=== PATIENT | male | born 1950 | race Caucasian/White ===

== ENCOUNTER 2020-08-18 06:45 | Emergency (ER) | payer OTHER, SELFPAY ==
[2020-08-18 06:50] VITALS: BP 157/71; PULSE 72; RESP 18; TEMP 36.8; O2SAT 98; BMI 27.5
--- NOTE | 2020-08-18 07:06 | W.ED.DIZZY ---
HPI - Dizziness General: Chief Complaint: Dizziness Stated Complaint: Frequent Falling/Dizziness Time Seen by Provider: 08/18/20 06:53 Source: patient Mode of arrival: ambulatory Limitations: no limitations History of Present Illness: HPI Narrative: Mr. Mcguire is a nice 69-year-old male who comes in with complaints of dizziness for 1 year. He describes the dizziness as lightheaded. Patient states that he has had these episodes sometimes twice a week and the symptoms will last for anywhere from 5 minutes to longer. Patient states at times he will have troubles concentrating with this. His symptoms change though and the fact that he has had 3 episodes of the past 8 days including once this morning when he gets these symptoms and has now passed out. He denies any preceding complications, chest pain, headache, abdominal pain, back pain, flank pain or otherwise. Patient denies any injuries from falling with the syncopal episodes. Patient does not believe he has been unconscious for very long after they have happened. Patient is unaware of any eliciting factors. He is unaware of any exacerbating or alleviating factors. Patient denies having history of syncope or any heart problems. Associated symptoms: Reports syncope; Denies change in hearing, chest pain, chills, diaphoresis, ear discharge, headache(s), malaise, nausea, palpitations or vomiting Associated neuro symptoms: Deny confusion or numbness in extremities Review of Systems Const: Denies: fever(s), chills, body aches, fatigue, malaise or diaphoresis Eyes: Denies: change in vision, blurry vision, photophobia, eye discomfort, eye discharge, eye redness or yellow eyes ENMT: Denies: throat pain, odynophagia, hoarseness, swelling of lips/tongue, ear or mastoid pain, ear discharge, change in hearing or nasal discharge Card: Reports: lightheadedness and syncope; Denies: chest pain, palpitations, irregular heart rhythm, edema, pre-syncope, dyspnea on exertion or orthopnea Resp: Denies: dyspnea, productive cough, non-productive cough, wheezing, hemoptysis or chest congestion GI: Denies: abdominal pain, nausea, vomiting, hematemesis, coffee ground emesis, heartburn, diarrhea, constipation, GI cramping, hematochezia or melena : Denies: flank pain, dysuria, urinary frequency, urinary urgency or hematuria Musc: Denies: neck pain, back pain, extremity pain, extremity swelling, joint pain, joint swelling, joint redness, joint warmth or joint stiffness Skin/Breast: Denies: rash, pruritus, erythema, skin pain or skin tenderness Neuro: Reports: dizziness; Denies: headache(s), numbness in extremities, weakness in extremities, sensory changes, lack of coordination, difficulty walking, vertigo, confusion, Slurred speech present or seizure-like activity Maximo/Lymph: Denies: easy bruising, easy bleeding, petechiae, purpura or enlarged lymph nodes All/Imm: Denies: urticaria, throat swelling, tongue swelling, facial swelling or acute wheezing PFSH ED PFSH: Medical History DM type 2 (diabetes mellitus, type 2) Hyperlipidemia Hypertension Physical Exam Const: COMMON NORMALS: no acute distress, patient oriented x3, no limitations and alert GENERAL APPEARANCE: cooperative HENMT: COMMON NORMALS: normocephalic, atraumatic, external ears normal, EAC's normal and Normal external nose present HEAD & SCALP: normal to inspection, normocephalic and atraumatic FACE & SINUS: normal facial exam and face symmetric NOSE: Normal external nose present and Normal nares present EXTERNAL EAR: Yes external ears normal EXTERNAL AUDITORY CANAL: EAC's normal MOUTH: Normal oral and palatal mucosa present, lip normal and tongue normal Eye: COMMON NORMALS: Equal, round and reactive pupils present and conjunctivae normal GENERAL EYE: appearance normal, both eyes and all related structures ALIGNMENT: Yes alignment normal PERIORBITAL: periorbital findings normal EYELID: eyelids normal CONJUNCTIVA: Yes conjunctivae normal SCLERA: sclerae normal PUPIL: Yes Equal, round and reactive pupils present Neck/C-Spine: COMMON NORMALS: full ROM, no lymphadenopathy, supple, no meningeal signs and no JVD GENERAL: Yes normal visual inspection and Yes trachea midline Chest: COMMONS NORMALS: normal inspection of the chest and normal palpation of entire chest wall Resp: COMMON NORMALS: normal respiratory effort, No retractions, No use of accessory muscles and clear to auscultation bilaterally EFFORT & INSPECTION: Yes able to speak in complete sentences and Yes symmetric chest movement AUSCULTATION: clear to auscultation bilaterally, no crackles, no rales, no rhonchi and no wheezes Cardio: COMMON NORMALS: no JVD, regular rate, regular rhythm, S1 normal heart sound present and S2 normal heart sound present RATE: regular rate RHYTHM: regular rhythm HEART SOUNDS: S1 normal heart sound present, S2 normal heart sound present, no click, no gallops, no murmurs and no rubs GI: COMMON NORMALS: Soft to palpation and No hepatosplenomegaly present PALPATION: Yes Soft to palpation, No Tenderness to palpation present (GI), No Guarding due to palpation present (GI), No Rigid due to palpation, Yes No hepatosplenomegaly present, No Hernia present, No Palpable mass present and No Pulsatile mass present : COMMON NORMALS: Yes no CVA tenderness BLADDER/KIDNEY EXAM: Yes no CVA tenderness Back/Pelvis: COMMON NORMALS: no CVA tenderness, thoracic and lumbar spine normal to inspection, no thoracic nor lumbar tenderness and thoraco-lumbar ROM normal Extremity: COMMON NORMALS: normal to inspection, full ROM, capillary refill normal, no joint enlargement, no clubbing, cyanosis or edema and no calf tenderness Neuro: COMMON NORMALS: patient oriented x3, CN's II-XII intact bilaterally, moves all extremities, no focal motor deficits and no sensory deficits noted SENSORIUM/ORIENTATION: Yes alert MENINGEAL SIGNS: Yes no meningeal signs SPEECH: speech normal Psych: COMMON NORMALS: mental status grossly normal, Normal thought process present, cooperative, normal affect, speech normal and activity/motor behavior normal SPEECH: Yes normal speech THOUGHT PROCESS: Normal thought process present Skin: COMMON NORMALS: no rashes or lesions noted, turgor normal, no jaundice, no petechiae and no mottling GENERAL SKIN EXAM: no rashes or lesions noted and turgor normal Course Vital Signs: Vital signs: Vital Signs Temperature 98.2 F 08/18/20 06:50 Pulse Rate 72 08/18/20 06:50 Respiratory Rate 18 08/18/20 06:50 Blood Pressure 157/71 08/18/20 06:50 Pulse Oximetry 98 08/18/20 06:50 Coding Level of Care Code ED Advertising Sales Associate for Chg Juan Jose
--- NOTE | 2020-08-18 07:10 | CT_ITS ---
WS: [id number] CT head wo con* [id number] REASON FOR EXAM: Dizziness, syncope, difficulty ambulating IV CONTRAST ADMINISTERED: Noncontrast. TOTAL EXAM DLP: 886.[address] scans at [facility] use at least one of these dose optimization techniques: automat ed exposure control; mA and/or kV adjustment per patient size (includes targeted exams where dose is matched to clinical indication); or iterative reconstruction. FINDINGS: The bony calvarium is intact. Moderate thickening of the mucosa of the ethmoid sinuses. Soft tissue density within the right spheno id sinus which contains calcification. There is no midline shift or other significant mass effect. No findings of intracranial hemorrhage. No extra-axial fluid collection. Mild symmetric global atrophy for age with no focal brain parenchymal abnormality noted. Brainstem and cerebellar hemispheres demonstrate no focal abnormality. Aspect of the CT/CT head wo con* [id number] IMPRESSION: Findings of chronic inflammatory sinus disease. No acute intracranial abnormality identified.
--- NOTE | 2020-08-18 07:11 | XR_ITS ---
WS: [id number] XR chest 1V portable [id number] REASON FOR EXAM: Syncope FINDINGS: The chest is unchanged compared to 11/04/2018. Heart and mediastinum are within normal limits Calcified granulomatous changes in both hemithoraces. No active pulmonary parenchymal or pleural dise ase. Moderate to severe degenerative spondylosis in the mid and lower thoracic spine. XR/XR chest 1V portable [id number] IMPRESSION: No acute chest abnormality.
--- NOTE | 2020-08-18 07:11 | ECG_ITS ---
[facility] Test Date: 2020-08-18 Pat Name: Omar Mcguire Department: Room: Gender: Male Lead Application Architect: : 1950 Requested By: Aaliyah Lundberg Order Number: [id number] Fong MD: Danitza Hall M.D. Measurements Intervals [place] Rate: 64 P: 68 MI: 173 QRS: 32 QRSD: 88 T: 17 QT: 420 QTc: 435 Interpretive Statements SINUS RHYTHM No previous ECG available for comparison Electronically Signed On 08-18-2020 19:33:59 LIGHTING TECHNICIAN by Danitza Hall M.D. [id number]
[2020-08-18 07:29] LABS: Basophils # 0.1 10^3/uL (0.0-0.1); Basophils % 1.1 %; Eosinophils # 0.2 10^3/uL (0.0-0.8); Eosinophils % 3.2 %; Hematocrit 41.8 % (42.0-52.0); Lymphocytes # 1.4 10^3/uL (0.8-4.8); Lymphocytes % 20.4 %; Mean Corpuscular HGB Conc 33.5 g/dL (30.0-36.0); Mean Corpuscular Hemoglobin 32.3 pg (28.0-34.0); Mean Corpuscular Volume 96.5 fL (80-94); Mean Platelet Volume 10.2 fL (7.4-10.4); Monocytes # 0.8 10^3/uL (0.2-0.9); Monocytes % 11.9 %; Neutrophils # 4.19 10^3/uL (1.8-7.7); Neutrophils % 63.2 %; Nucleated Red Blood Cells % 0 %; Platelet Count 141 10^3/cmm (130-400); Red Blood Count 4.33 10^6/uL (4.1-5.3); Red Cell Distribution Width 13.8 % (12.1-15.1); White Blood Count 6.6 10^3/uL (4.0-10.0)
[2020-08-18 07:48] LABS: Alanine Aminotransferase 29 U/L (0-41); Albumin Level 4.2 g/dL (3.5-5.2); Alkaline Phosphatase 58 IU/L (40-130); Anion Gap 14.3 (5-19); Aspartate Amino Transferase 27 U/L (0-40); Blood Urea Nitrogen 15 mg/dL (8-23); Calcium 9.2 mg/dL (8.5-10.5); Carbon Dioxide 26 mmol/L (22-29); Chloride 100 mmol/L (98-107); Globulin 2.4 g/dL (1.3-4.6); Glucose 293 mg/dL (65-115); Magnesium 1.9 mg/dL (1.7-2.3); Osmolality Calculated 294 mOsm/kg (285-295); Potassium 4.3 mmol/L (3.5-5.1); Sodium 136 mmol/L (136-145); Total Bilirubin 0.4 mg/dL (0.15-1.2); Total Protein 6.6 g/dL (6.6-8.7)
[2020-08-18 07:49] LABS: Troponin(5th) Baseline 15 ng/L (0-15)
[2020-08-18 07:57] LABS: Add Urine Microscopic? NO
[2020-08-18 08:01] LABS: Bilirubin Urine Neg (Negative); Blood Urine Neg (Negative); Glucose Urine UA 4+ (Normal); Ketones Urine Negative (Negative); Leukocyte Esterase Urine Negative (Negative); Nitrate Urine Negative (Negative); Protein Urine Neg (Negative); Urine Appearance Clear (CLEAR); Urine Color Straw (Yellow); Urobilinogen Urine Norm (Negative); pH Urine 6.5 (5-7)
[2020-08-18 08:35] VITALS: BP 146/67; PULSE 68; RESP 18; O2SAT 97
--- NOTE | 2020-08-18 09:11 | ECG_ITS ---
[facility] Test Date: 2020-08-18 Pat Name: Omar Mcguire Department: Room: Gender: Male Burlap Roll Coverer: : 1950 Requested By: Aaliyah Lundberg Order Number: [id number] Ajit MD: Danitza Hall M.D. Measurements Intervals [place] Rate: 59 P: 79 MN: 182 QRS: 40 QRSD: 82 T: 37 QT: 423 QTc: 419 Interpretive Statements SINUS BRADYCARDIA Compared to ECG 08/18/2020 07:32:31 Sinus rhythm no longer present Electronically Signed On 08-18-2020 20:01:18 LABORER CONSTRUCTION OR LEAK GANG by Danitza Hall M.D. [id number]
[2020-08-18 09:13] VITALS: BP 104/75; BP 120/65; BP 133/84; PULSE 62; PULSE 63; PULSE 67
[2020-08-18 09:21] VITALS: BP 133/84; PULSE 61; RESP 18; O2SAT 97
--- NOTE | 2020-08-18 09:36 | PC.NURSE ---
patient and son has been informed of the risks of leaving patient is very confused and unable to follow directions well, I tried very hard to convince him of the riskd for leaving and asked him to please dont drive
[2020-08-18 09:42] LABS: Troponin 5 2HR 13.81 ng/L (0-15)
[2020-08-18 09:45] LABS: Troponin 5 2HR Delta -1.19 ABS# (0-10)
[2020-08-18 09:47] VITALS: BP 101/67; PULSE 63; RESP 18; O2SAT 97
== END 2020-08-18 09:49 ==
PROVIDERS: Emergency Medicine; Emergency Provider Family Medicine; PCP Internal Medicine
DX: R42 Dizziness and giddiness (principal); E11.9 Type 2 diabetes mellitus without complications; I10 Essential (primary) hypertension; E78.5 Hyperlipidemia, unspecified
CPT/HCPCS: 12345; 70450; 71045; 80053; 81003; 83735; 84484; 85025; 93005; 99282; 99283

== ENCOUNTER 2020-08-20 10:14 | Emergency (ER) | payer OTHER, SELFPAY ==
[2020-08-20 10:28] VITALS: BP 156/78; PULSE 72; RESP 18; TEMP 36.7; O2SAT 98; BMI 26.7
--- NOTE | 2020-08-20 11:31 | PC.NURSE ---
Pt sitting in chair in ED lobby with no complaints at this time.
[2020-08-20 12:55] VITALS: BP 155/90; PULSE 61; RESP 18
--- NOTE | 2020-08-20 13:42 | XR_ITS ---
WS: [id number] XR chest 2V* [id number] REASON FOR EXAM: dizziness FINDINGS: The chest is unchanged compared to previous examination of 08/18/2020. The heart and mediastinum are within normal limits. No active pulmonary parenchymal or pleural disease is noted. Degenerative spondylosis in the lower lumbar spine and degenerative arthropathy in the shoulders, mos t notably the right. XR/XR chest 2V* [id number] IMPRESSION: No acute chest abnormality.
[2020-08-20 13:55] LABS: Add Urine Microscopic? NO
--- NOTE | 2020-08-20 14:00 | ED_ITS ---
HPI - Dizziness General: Chief Complaint: Dizziness Stated Complaint: DIZZY,WEAKNESS Time Seen by Provider: 08/20/20 12:06 Source: patient and old records reviewed Mode of arrival: ambulatory History of Present Illness: HPI Narrative: 69-year-old male who presents to the emergency department with complaints of dizziness that has been going on for several months. He however states that it is worse in the last week and he has had 3 syncopal episodes because of these. He denies room spinning but states he feels dizzy and lightheaded. He was seen here for this 2 days ago and apparently was to be admitted but the patient left AGAINST MEDICAL ADVICE. He is here to be seen as his primary care told him to return for admission. The patient states that if he requires admission now he will be admitted. He had to leave because he was apparently closing on a property is what he said. He still has dizziness, no known aggravating or relieving factors. Its not worse on standing or on laying down. It is no worse on moving his head. No fever, no headache, no difficulty breathing. He also complains of occasional cramping in both legs, sometimes in the thighs and sometimes in the calf muscles. MD elicited complaint: dizziness and lightheadedness Onset (ago): month(s) Timing: gradual onset Severity: severe Description: lightheadedness History of similar symptoms: Yes Exacerbating factors: nothing Relieving factors: nothing Associated symptoms: Denies change in hearing, chest pain, chills, cough, diaphoresis, ear discharge, ear pressure, fevers/chills, headache(s), malaise, nausea, nasal congestion, palpitations, rash, short of breath, syncope, tinnitus, vomiting or weakness Associated neuro symptoms: Deny confusion, difficulty speaking, dysphagia, diplopia, extremity weakness, facial numbness, facial weakness, gait changes, numbness in extremities or visual changes Review of Systems General: Reports: 10 or more systems reviewed and unremarkable except in HPI a nd below Const: Denies: chills, malaise or diaphoresis Eyes: Denies: change in vision or blurry vision ENMT: Denies: ear discharge, change in hearing, tinnitus or nasal congestion Card: Denies: chest pain, palpitations or syncope Resp: Denies: dyspnea, productive cough or non-productive cough GI: Denies: nausea, vomiting or dysphagia : Denies: flank pain, dysuria, urinary frequency, urinary urgency or urinary hesitancy Musc: Denies: neck pain, back pain or extremity swelling Skin/Breast: Denies: rash, pruritus or erythema Neuro: Denies: headache(s), numbness in extremities or confusion Endo: Denies: polyuria, polydipsia or tired all the time PFSH ED PFSH: Medical History DM type 2 (diabetes mellitus, type 2) Hyperlipidemia Hypertension Physical Exam Const: COMMON NORMALS: no acute distress, average body habitus, patient oriented x3, no limitations, healthy appearing, alert and well nourished HENMT: COMMON NORMALS: normocephalic, atraumatic and moist oral mucous membranes HEAD & SCALP: normocephalic and atraumatic Eye: COMMON NORMALS: Equal, round and reactive pupils present, EOMs intact bilaterally, conjunctivae normal and no scleral icterus CONJUNCTIVA: Yes conjunctivae normal PUPIL: Yes Equal, round and reactive pupils present Neck/C-Spine: COMMON NORMALS: no meningeal signs and no JVD Resp: COMMON NORMALS: normal respiratory effort, No retractions, No use of accessory muscles, clear to auscultation bilaterally and percussion normal AUSCULTATION: clear to auscultation bilaterally PERCUSSION: percussion normal Cardio: COMMON NORMALS: no JVD, regular rate, regular rhythm, S1 normal heart sound present, S2 normal heart sound present, No gallops present (Cardio), No clicks present (Cardio), No murmurs present (Cardio), No rub (Cardio) and Peripheral pulses 2+ throughout RATE: regular rate RHYTHM: regular rhythm HEART SOUNDS: S1 normal heart sound present and S2 normal heart sound present PERIPHERAL PULSES: Peripheral pulses 2+ throughout GI: COMMON NORMALS: Normal to inspection, nondistended, normoactive bowel sounds present, Soft to palpation, non-tender, No hepatosplenomegaly present, no masses and no bruits PALPATION: Yes Soft to palpation and Yes No hepatosplenomegaly present Extremity: COMMON NORMALS: normal to inspection, full ROM, capillary refill normal, no calf tenderness and no pedal edema Neuro: COMMON NORMALS: patient oriented x3 SENSORIUM/ORIENTATION: Yes alert MENINGEAL SIGNS: Yes no meningeal signs Skin: COMMON NORMALS: no rashes or lesions noted, no wounds, turgor normal, no jaundice, no petechiae and no mottling GENERAL SKIN EXAM: no rashes or lesions noted and turgor normal Course Reevaluation(s): Reevaluation #1: Discussed his lab and imaging findings with him. Also discussed my conversation with Dr. Dalton with him. The patient is okay to be discharged home and will obtain his outpatient testing. However because he is [facility] he has to be seen in the cardiac and neurology clinics to have all the test ordered. Referral made to the cardiac clinic and the neurologist. The patient voiced understanding and is in agreement with the plan Time: 15:11 Consultations: Consultation #1: Discussed the patient with Dr. Dalton. Patient can be discharged home since evaluation is unremarkable. He will need outpatient EEG, Holter, echo, and a carotid Doppler. Time: 14:59 Vital Signs: Vital signs: Vital Signs Temperature 98.1 F 08/20/20 10:28 Pulse Rate 70 08/20/20 16:07 Respiratory Rate 15 08/20/20 16:07 Blood Pressure 146/68 08/20/20 16:07 Pulse Oximetry 98 08/20/20 16:07 MDM - Dizziness MDM Narrative: Medical decision making narrative: Patient is a 69-year-old male who was seen in this department 2 days ago for similar symptoms. He has been having dizziness for several months and possibly up to a year however he has had 3 syncopal episodes this week. Evaluation in the emergency department today was unremarkable and he is discharged home with orders for an outpatient EEG, echocardiogram, carotid Dopplers and Holter monitor. He has been previously worked up including a head CT [address] was unremarkable then and no repeat head CT was done today. Medical Records: Attestation: I reviewed the patient's medical records. Lab Data: Attestation: I reviewed the patient's lab results. Labs: Lab Results 08/20/20 08/20/20 08/20/20 Range/Units 12:53 14:03 14:03 WBC 7.6 (4.0-10.0) 10^3/ uL RBC 4.33 (4.1-5.3) 10^6/u L Hgb 13.9 (11.7-16.6) g/dL Hct 42.2 (42.0-52.0) % MCV 97.5 H (80-94) fL MCH 32.1 (28.0-34.0) pg MCHC 32.9 (30.0-36.0) g/dL RDW 13.7 (12.1-15.1) % Plt Count 145 (130-400) 10^3/c mm MPV 9.8 (7.4-10.4) fL Neut % (Auto) 61.9 % Lymph % (Auto) 22.9 % [place] % (Auto) 11.6 % Eos % (Auto) 2.6 % Baso % (Auto) 0.7 % Neut # (Auto) 4.69 (1.8-7.7) 10^3/u L Lymph # (Auto) 1.7 (0.8-4.8) 10^3/u L [place] # (Auto) 0.9 (0.2-0.9) 10^3/u L Eos # (Auto) 0.2 (0.0-0.8) 10^3/u L Baso # (Auto) 0.1 (0.0-0.1) 10^3/u L Nucleated RBC % (a uto) 0 % Nucleated RBCs # 0.0 /100WBC Sodium 138 (136-145) mmol/L Potassium 4.5 (3.5-5.1) mmol/L Chloride 102 (98-107) mmol/L Carbon Dioxide 27 (22-29) mmol/L Anion Gap 13.5 (5-19) BUN 17 (8-23) mg/dL Creatinine 0.8 (0.7-1.2) mg/dL GFR Calculation Not Reportable Glucose 122 H (65-115) mg/dL Calculated Osmolal ity 289 (285-295) mOsm/k g Calcium 9.3 (8.5-10.5) mg/dL Magnesium 2.1 (1.7-2.3) mg/dL Total Bilirubin 0.3 (0.15-1.2) mg/dL AST 28 (0-40) U/L ALT 29 (0-41) U/L Alkaline Phosphata se 61 (40-130) IU/L Creatine Kinase 282 (39-308) U/L Troponin T Gen 5 n g/L (0-15) ng/L C-Reactive Protein 0.7 (0.0-4.9) mg/L Total Protein 6.7 (6.6-8.7) g/dL Albumin 4.1 (3.5-5.2) g/dL Globulin 2.6 (1.3-4.6) g/dL TSH 2.77 (0.27-4.20) uIU/ mL Urine Color Straw (Yellow) Urine Appearance Clear (CLEAR) Urine pH 5 (5-7) Ur Specific Gravit y 1.010 (1.005-1.030) Urine Protein Neg (Negative) Urine Glucose (UA) Norm (Normal) Urine Ketones Negative (Negative) Urine Blood Neg (Negative) Urine Nitrate Negative (Negative) Urine Bilirubin Neg (Negative) Urine Urobilinogen Norm (Negative) mg/dL Ur Leukocyte Dominique ase Negative (Negative) 08/20/20 Range/Units 14:03 WBC (4.0-10.0) 10^3/ uL RBC (4.1-5.3) 10^6/u L Hgb (11.7-16.6) g/dL Hct (42.0-52.0) % MCV (80-94) fL MCH (28.0-34.0) pg MCHC (30.0-36.0) g/dL RDW (12.1-15.1) % Plt Count (130-400) 10^3/c mm MPV (7.4-10.4) fL Neut % (Auto) % Lymph % (Auto) % [place] % (Auto) % Eos % (Auto) % Baso % (Auto) % Neut # (Auto) (1.8-7.7) 10^3/u L Lymph # (Auto) (0.8-4.8) 10^3/u L [place] # (Auto) (0.2-0.9) 10^3/u L Eos # (Auto) (0.0-0.8) 10^3/u L Baso # (Auto) (0.0-0.1) 10^3/u L Nucleated RBC % (a uto) % Nucleated RBCs # /100WBC Sodium (136-145) mmol/L Potassium (3.5-5.1) mmol/L Chloride (98-107) mmol/L Carbon Dioxide (22-29) mmol/L Anion Gap (5-19) BUN (8-23) mg/dL Creatinine (0.7-1.2) mg/dL GFR Calculation Glucose (65-115) mg/dL Calculated Osmolal ity (285-295) mOsm/k g Calcium (8.5-10.5) mg/dL Magnesium (1.7-2.3) mg/dL Total Bilirubin (0.15-1.2) mg/dL AST (0-40) U/L ALT (0-41) U/L Alkaline Phosphata se (40-130) IU/L Creatine Kinase (39-308) U/L Troponin T Gen 5 n g/L 15 (0-15) ng/L C-Reactive Protein (0.0-4.9) mg/L Total Protein (6.6-8.7) g/dL Albumin (3.5-5.2) g/dL Globulin (1.3-4.6) g/dL TSH (0.27-4.20) uIU/ mL Urine Color (Yellow) Urine Appearance (CLEAR) Urine pH (5-7) Ur Specific Gravit y (1.005-1.030) Urine Protein (Negative) Urine Glucose (UA) (Normal) Urine Ketones (Negative) Urine Blood (Negative) Urine Nitrate (Negative) Urine Bilirubin (Negative) Urine Urobilinogen (Negative) mg/dL Ur Leukocyte Dominique ase (Negative) Imaging Data^: CXR: Attestation: I personally reviewed and interpreted this imaging study as follows: Radiologist's impression: [address] [address] XRay Report Signed Patient: Omar Mcguire #: [id number] : 8Acct#:[id number] Age/Sex: 69 / MADM Date: 08/20/20 Loc: ERRoom/Bed: Attending Dr: Ordering Provider/Ordering MD: Diaz Parekh [place] [facility] [place]: 08/20/20 Procedure(s): XR chest 2V* [id number] Accession Number(s): [id number] Report Number: [id number] WS: [id number] XR chest 2V* [id number] REASON FOR EXAM: dizziness FINDINGS: The chest is unchanged compared to previous examination of 08/18/2020. The heart and mediastinum are within normal limits. No active pulmonary parenchymal or pleural disease is noted. Degenerative spondylosis in the lower lumbar spine and degenerative arthropathy in the shoulders, most notably the right. XR/XR chest 2V* [id number] IMPRESSION: No acute chest abnormality. Dictated By:Iglesia Montoya Jr, MD Signed By:Iglesia Montoya Jr MDSigned Date/Time:08/20/201434 DD/ 28 EKG Data^: EKG 1: Attestation: I personally reviewed and interpreted this EKG as follows: EKG interpretation date: 08/20/20 EKG interpretation time: 13:57 Prior EKG tracings: not available for review Interpretation: Sinus bradycardia. No ST changes. Normal axis. No STEMI. Discharge Plan Discharge Patient Disposition: Home Clinical Impression: Syncope Qualifiers: Syncope type: unspecified Qualified Code(s): R55 - Syncope and collapse Condition: Stable Prescriptions: Continued aspirin 325 mg Tablet 325 mg PO DAILY@04 RF: 0 glipizide 10 mg Tablet 10 mg PO BID@ RF: 0 amlodipine 5 mg Tablet 5 mg PO DAILY@04 RF: 0 pravastatin 80 mg Tablet 80 mg PO DAILY@04 RF: 0 metformin 1,000 mg Tablet 1,000 mg PO BID@ RF: 0 polyethylene glycol 3350 [Miralax] 17 gram/dose Powder 17 g PO DAILY PRN (Reason: Constipation) RF: 0 naproxen 500 mg Tablet 500 mg PO BID PRN (Reason: Pain) RF: 0 doxazosin 2 mg Tablet 1 mg PO BEDTIME RF: 0 tadalafil 20 mg Tablet 20 mg PO PRN RF: 0 fluoride (sodium) [Sodium Fluoride 5000 Plus] 1.1 % Cream 1 applic DENTAL DAILY RF: 0 alogliptin 12.5 mg Tablet 12.5 mg PO DAILY@04 RF: 0 potassium chloride 20 mEq Tablet Extended Release 20 meq PO DAILY@04 RF: 0 Discharge Orders: Discharge ED (Routine); Ordered 08/20/20 Ordered By: Diaz Parekh Referrals: Jose Williamson [Primary Care Provider] - 1-3 days Discharge Diet: Usual diet Discharge Activity: Resume usual activity Patient Instructions: Syncope (ED) Activity Restrictions/Additional Instructions: Return for any new or worsening symptoms. Follow up with your primary care provider within 3 days. You will need an outpatient echocardiogram (ultrasound of your heart), holter monitor, ultrasound of the arteries to your head and neck, and an EEG to see if we can find out why you have the symptoms you are having. Continue your home medications. Coding Level of Care Code ED Transmitter Supervisor for Chg Fwd Exam Comprehensive
[2020-08-20 14:05] LABS: Bilirubin Urine Neg (Negative); Blood Urine Neg (Negative); Glucose Urine UA Norm (Normal); Ketones Urine Negative (Negative); Leukocyte Esterase Urine Negative (Negative); Nitrate Urine Negative (Negative); Protein Urine Neg (Negative); Urine Appearance Clear (CLEAR); Urine Color Straw (Yellow); Urobilinogen Urine Norm (Negative); pH Urine 5 (5-7)
[2020-08-20 14:14] LABS: Basophils # 0.1 10^3/uL (0.0-0.1); Basophils % 0.7 %; Eosinophils # 0.2 10^3/uL (0.0-0.8); Eosinophils % 2.6 %; Hematocrit 42.2 % (42.0-52.0); Hemoglobin 13.9 g/dL (11.7-16.6); Lymphocytes # 1.7 10^3/uL (0.8-4.8); Lymphocytes % 22.9 %; Mean Corpuscular HGB Conc 32.9 g/dL (30.0-36.0); Mean Corpuscular Hemoglobin 32.1 pg (28.0-34.0); Mean Corpuscular Volume 97.5 fL (80-94); Mean Platelet Volume 9.8 fL (7.4-10.4); Monocytes # 0.9 10^3/uL (0.2-0.9); Monocytes % 11.6 %; Neutrophils # 4.69 10^3/uL (1.8-7.7); Neutrophils % 61.9 %; Nucleated Red Blood Cells % 0 %; Platelet Count 145 10^3/cmm (130-400); Red Blood Count 4.33 10^6/uL (4.1-5.3); Red Cell Distribution Width 13.7 % (12.1-15.1); White Blood Count 7.6 10^3/uL (4.0-10.0)
[2020-08-20 14:29] VITALS: BP 143/76; BP 147/73; BP 158/85; PULSE 56; PULSE 58; PULSE 72; RESP 18; O2SAT 97
[2020-08-20 14:33] LABS: Troponin T (5th) Once 15 ng/L (0-15)
[2020-08-20 14:40] LABS: Alanine Aminotransferase 29 U/L (0-41); Albumin Level 4.1 g/dL (3.5-5.2); Alkaline Phosphatase 61 IU/L (40-130); Aspartate Amino Transferase 28 U/L (0-40); Blood Urea Nitrogen 17 mg/dL (8-23); C Reactive Protein 0.7 mg/L (0.0-4.9); Calcium 9.3 mg/dL (8.5-10.5); Carbon Dioxide 27 mmol/L (22-29); Chloride 102 mmol/L (98-107); Creatine Phosphokinase 282 U/L (39-308); Globulin 2.6 g/dL (1.3-4.6); Glucose 122 mg/dL (65-115); Magnesium 2.1 mg/dL (1.7-2.3); Osmolality Calculated 289 mOsm/kg (285-295); Sodium 138 mmol/L (136-145); Thyroid Stimulating Hormone 2.77 uIU/mL (0.27-4.20); Total Bilirubin 0.3 mg/dL (0.15-1.2); Total Protein 6.7 g/dL (6.6-8.7)
[2020-08-20 14:46] LABS: Anion Gap 13.5 (5-19); Potassium 4.5 mmol/L (3.5-5.1)
[2020-08-20 15:01] VITALS: BP 146/68; PULSE 71; RESP 18; O2SAT 96
--- NOTE | 2020-08-20 15:41 | DCPLANNER ---
knowledge manager had message to schedule a follow up appointment with Dr. Dalton. knowledge manager called the office of Dr. Dalton, spoke with residential program coordinator, Lynda Napier. knowledge manager gave clinic patients information. Patients information would be printed and reviewed. Clinic will call patient with appointment information.
[2020-08-20 16:07] VITALS: BP 146/68; PULSE 70; RESP 15; O2SAT 98
--- NOTE | 2020-08-21 09:50 | DCPLANNER ---
clinical nursing manager had message to schedule a follow up appointment for patient with [facility]. clinical nursing manager called [facility], spoke with Kayli, gave clinic patients information. A follow up appointment is scheduled for Monday August 31, 2020 at 1:[address] Ellis. clinical nursing manager called patient and gave patient the appointment information. clinical nursing manager also emailed patients information to [facility] for a consent to be placed an authorization for patient to be seen.
--- NOTE | 2020-09-18 11:38 | DCPLANNER ---
Patient has a follow up appointment scheduled for Monday, September 30, 2020 at 10:15 with COORDINATOR OF EVALUATIONJono. Clinic will call patient with appointment information.
--- NOTE | 2020-09-23 15:04 | DCPLANNER ---
Patient had a follow up appointment scheduled for 08.31.20 with [facility] - patient did attend the appointment.
--- NOTE | 2020-11-10 16:02 | DCPLANNER ---
Patient had a follow up appointment scheduled for 09.30.[address] Dalton - patient did not attend appointment.
== END 2020-08-20 16:08 | disposition home or self-care (01) ==
PROVIDERS: Emergency Provider Family Medicine; PCP Internal Medicine
DX: R55 Syncope and collapse (principal); Z79.82 Long term (current) use of aspirin; E11.9 Type 2 diabetes mellitus without complications; E78.5 Hyperlipidemia, unspecified; I10 Essential (primary) hypertension
CPT/HCPCS: 12345; 71046; 80053; 81003; 82550; 83735; 84443; 84484; 85025; 86140; 99282; 99283

== ENCOUNTER 2021-12-08 15:24 | Inpatient (IN) | payer OTHER, MEDICARE, SELFPAY ==
[2021-12-08] VITALS (8 sets, daily range): BP systolic 113–167; BP diastolic 71–89; PULSE 65–79; RESP 15–18; TEMP 37.1; O2SAT 91–98; BMI 26.2
--- NOTE | 2021-12-08 20:40 | ECG_ITS ---
[facility] Test Date: 2021-12-08 Pat Name: Omar Mcguire Department: Room: Gender: Male Land Classifier: : [id number] Requested By: Daphne Osborne Order Number: [id number] Fong MD: Danitza Hall M.D. Measurements Intervals [place] Rate: 68 P: 60 RI: 165 QRS: -1 QRSD: 83 T: 19 QT: 388 QTc: 414 Interpretive Statements SINUS RHYTHM WITH MARKED SINUS ARRHYTHMIA Compared to ECG 08/18/2020 09:20:34 Sinus bradycardia no longer present Electronically Signed On 12-09-2021 7:16:47 CDT by Danitza Hall M.D. [id number]
--- NOTE | 2021-12-08 20:40 | XRR_ITS ---
PROCEDURE INFORMATION: Exam: XR Chest Exam date and time: 12/08/2021 8:45 PM Age: 71 years old Clinical indication: Other: Severe UTI; Additional info: Not feeling well TECHNIQUE: Imaging protocol: XR of the chest. Views: 1 view. COMPARISON: CR XR chest 2V* [id number] 08/20/2020 2:19 PM FINDINGS: Lungs: No consolidation. Pleural spaces: Unremarkable. No pleural effusion. No pneumothorax. Heart/Mediastinum: No cardiomegaly. Bones/joints: No acute findings. XR/XR chest 1V portable [id number] IMPRESSION: No acute findings.
--- NOTE | 2021-12-08 20:41 | ED_ITS ---
HPI - General Adult General: Chief complaint: Recheck/Abnormal Lab/Rx Stated complaint: severe uti, requests infusion Time Seen by Provider: 12/08/21 20:24 Source: patient and family Mode of arrival: ambulatory Limitations: no limitations History of Present Illness: Patient is a 71-year-old male who presents to ED today at the request of the NH for admission for an ESBL UTI. Patient states approximately 1.5 weeks ago he began noticing he generally felt unwell. He states he was having some pain to his suprapubic region and states his urine was very yellow, cloudy, and odorous. Patient was seen at the NH and had a UA suspicious for infection and therefore was placed on oral antibiotics. He reportedly was also given IM steroids and placed on a week long steroid taper. Patient states because of that his blood sugars have been running coretta high . He states he was contacted recently and told that his cultures showed resistance to all options for oral antibiotics and he needed to be on IV antibiotics. States he has not had much of an appetite. He is not having any vomiting or diarrhea. Again he states he feels dizzy and generally unwell. He is not having any flank pains. He states he did run a fever of up to 102 several days ago but has been afebrile over the past 48 hours. Onset (ago): day(s) Associated symptoms: Deny chest pain, confusion, dyspnea, headache(s), nausea, rash, palpitations, syncope or vomiting Treatments prior to arrival: other (oral abx, steroids) Review of Systems Const: Reports: fever(s) (several days ago but afebrile over the past 48 hours), change in appetite and fatigue; Denies: chills or body aches Eyes: Denies: change in vision or blurry vision Card: Denies: chest pain, palpitations, irregular heart rhythm, edema, swelling of feet/ankles, syncope or pre-syncope Resp: Denies: dyspnea GI: Reports: abdominal pain; Denies: nausea, vomiting or diarrhea : Reports: urinary frequency; Denies: flank pain, difficulty urinating, urinary dribbling, difficulty starting urination or hematuria Musc: Denies: neck pain, back pain, extremity pain or joint pain Skin/Breast: Denies: rash Neuro: Reports: dizziness; Denies: headache(s), numbness in extremities, weakness in extremities, sensory changes, lack of coordination, difficulty walking or confusion PFSH ED PFSH: Medical History DM type 2 (diabetes mellitus, type 2) Hyperlipidemia Hypertension Physical Exam Const: COMMON NORMALS: no acute distress, average body habitus, patient oriented x3, no limitations, healthy appearing, alert and well nourished HENMT: COMMON NORMALS: normocephalic and atraumatic HEAD & SCALP: normocephalic and atraumatic Resp: COMMON NORMALS: normal respiratory effort and clear to auscultation bilaterally AUSCULTATION: clear to auscultation bilaterally Cardio: COMMON NORMALS: regular rate and regular rhythm RATE: regular rate RHYTHM: regular rhythm GI: COMMON NORMALS: Normal to inspection, nondistended, normoactive bowel sounds present, Soft to palpation, No hepatosplenomegaly present and no masses PALPATION: Yes Soft to palpation, Yes Tenderness to palpation present (GI) (suprapubic) and Yes No hepatosplenomegaly present : COMMON NORMALS: Yes no CVA tenderness BLADDER/KIDNEY EXAM: Yes no CVA tenderness Back/Pelvis: COMMON NORMALS: no CVA tenderness Extremity: COMMON NORMALS: normal to inspection Neuro: [place] COMA SCALE: document GCS findings [place] coma scale eye opening: Spontaneous [place] coma scale verbal response: Orientated [place] coma scale motor response: Obey commands [place] coma scale total score: 15 COMMON NORMALS: patient oriented x3 SENSORIUM/ORIENTATION: Yes alert Skin: COMMON NORMALS: no rashes or lesions noted GENERAL SKIN EXAM: no rashes or lesions noted Course Vital Signs: Vital signs: Vital Signs Temperature 98.7 F 12/08/21 17:25 Pulse Rate 71 12/08/21 17:25 Respiratory Rate 15 12/08/21 17:25 Blood Pressure 167/71 12/08/21 17:25 Pulse Oximetry 98 12/08/21 17:25 [facility] - General Adult Medical Decision Making Medical records from NH reviewed and I will place on chart. Culture and sensitivity reports attached which shows ESBL resistant to all oral options. He was started on IV Zosyn and Imipenem here both of which show sensitivity. Patient clinically appears fairly well. His vital signs are stable. White count is 11.8 with a normal lactate. Glucose is 250s. Last hemoglobin A1c was 9.5%. Spoke to Dr. Templeton who recommends hospitalization for IV antibiotic therapy. Lab Data : 12/08/21 21:00 12/08/21 21:00 Radiology Impressions Chest X-Ray 12/08/21 20:40 IMPRESSION: No acute findings. Laboratory Results WBC 11.8 10^3/uL (4.0-10.0) H 12/08/21 21:00 RBC 3.99 10^6/uL (4.1-5.3) L 12/08/21 21:00 Hgb 12.2 g/dL (11.7-16.6) 12/08/21 21:00 Hct 36.2 % (42.0-52.0) L 12/08/21 21:00 MCV 90.7 fl (80-94) 12/08/21 21:00 MCH 30.6 pg (28.0-34.0) 12/08/21 21:00 MCHC 33.7 g/dL (30.0-36.0) 12/08/21 21:00 RDW 14.6 % (12.1-15.1) 12/08/21 21:00 Plt Count 205 10^3/cmm (130-400) 12/08/21 21:00 MPV 9.8 fL (7.4-10.4) 12/08/21 21:00 Neut % (Auto) 75.1 % 12/08/21 21:00 Lymph % (Auto) 9.6 % 12/08/21 21:00 [place] % (Auto) 11.7 % 12/08/21 21:00 Eos % (Auto) 0.6 % 12/08/21 21:00 Baso % (Auto) 0.6 % 12/08/21 21:00 Neut # (Auto) 8.89 10^3/uL (1.8-7.7) H 12/08/21 21:00 Lymph # (Auto) 1.1 10^3/uL (0.8-4.8) 12/08/21 21:00 [place] # (Auto) 1.4 10^3/uL (0.2-0.9) H 12/08/21 21:00 Eos # (Auto) 0.1 10^3/uL (0.0-0.8) 12/08/21 21:00 Baso # (Auto) 0.1 10^3/uL (0.0-0.1) 12/08/21 21:00 Nucleated RBC % (auto) 0 % 12/08/21 21:00 Nucleated RBCs # 0.0 /100WBC 12/08/21 21:00 Sodium 131 mmol/L (136-145) L 12/08/21 21:00 Potassium 4.8 mmol/L (3.5-5.1) 12/08/21 21:00 Chloride 97 mmol/L (98-107) L 12/08/21 21:00 Carbon Dioxide 23 mmol/L (22-29) 12/08/21 21:00 Anion Gap 15.8 (5-19) 12/08/21 21:00 BUN 19 mg/dL (8-23) 12/08/21 21:00 Creatinine 1.4 mg/dL (0.7-1.2) H 12/08/21 21:00 GFR Calculation Not Reportable 12/08/21 21:00 Glucose 251 mg/dL (65-115) H 12/08/21 21:00 Calculated Osmolality 283 mOsm/kg (285-295) L 12/08/21 21:00 Lactic Acid 0.9 mmol/L (0.5-2.2) 12/08/21 21:00 Calcium 10.0 mg/dL (8.5-10.5) 12/08/21 21:00 Total Bilirubin 0.3 mg/dL (0.15-1.2) 12/08/21 21:00 AST 13 U/L (0-40) 12/08/21 21:00 ALT 14 U/L (0-41) 12/08/21 21:00 Alkaline Phosphatase 64 IU/L (40-130) 12/08/21 21:00 Total Protein 7.2 g/dL (6.6-8.7) 12/08/21 21:00 Albumin 3.6 g/dL (3.5-5.2) 12/08/21 21:00 Globulin 3.6 g/dL (1.3-4.6) 12/08/21 21:00 Urine Color Yellow (Yellow) 12/08/21 21:00 Urine Appearance Hazy (CLEAR) A 12/08/21 21:00 Urine pH 6 (5-7) 12/08/21 21:00 Ur Specific [place] 1.010 (1.005-1.030) 12/08/21 21:00 Urine Protein Trace (Negative) 12/08/21 21:00 Urine Glucose (UA) Norm (Normal) 12/08/21 21:00 Urine Ketones Negative (Negative) 12/08/21 21:00 Urine Blood 3+ (Negative) H 12/08/21 21:00 Urine Nitrate Negative (Negative) 12/08/21 21:00 Urine Bilirubin Neg (Negative) 12/08/21 21:00 Urine Urobilinogen Norm mg/dL (Negative) 12/08/21 21:00 Ur Leukocyte Esterase 2+ (Negative) H 12/08/21 21:00 Urine RBC 0-4 /hpf (0-2) H 12/08/21 21:00 Urine WBC Too numerous to cnt /hpf (0-5) H 12/08/21 21:00 Ur Squamous Epith Cells 0-4 /hpf (0-5) H 12/08/21 21:00 Amorphous Sediment Not Reportable 12/08/21 21:00 Urine Bacteria Trace /hpf (NONE) 12/08/21 21:00 Discharge Plan Discharge Patient Disposition: Admitted As Inpatient Clinical Impression: Urinary tract infection due to extended-spectrum beta lactamase (ESBL) producing Escherichia coli, DM type 2 (diabetes mellitus, type 2), Hypertension Condition: Stable Coding Level of Care Code ED Billet Checker for Chg Fwd Exam Comprehensive
[2021-12-08 21:15] LABS: Basophils # 0.1 10^3/uL (0.0-0.1); Basophils % 0.6 %; Eosinophils # 0.1 10^3/uL (0.0-0.8); Eosinophils % 0.6 %; Hematocrit 36.2 % (42.0-52.0); Hemoglobin 12.2 g/dL (11.7-16.6); Lymphocytes # 1.1 10^3/uL (0.8-4.8); Lymphocytes % 9.6 %; Mean Corpuscular HGB Conc 33.7 g/dL (30.0-36.0); Mean Corpuscular Hemoglobin 30.6 pg (28.0-34.0); Mean Corpuscular Volume 90.7 fl (80-94); Mean Platelet Volume 9.8 fL (7.4-10.4); Monocytes # 1.4 10^3/uL (0.2-0.9); Monocytes % 11.7 %; Neutrophils # 8.89 10^3/uL (1.8-7.7); Neutrophils % 75.1 %; Nucleated Red Blood Cells % 0 %; Platelet Count 205 10^3/cmm (130-400); Red Blood Count 3.99 10^6/uL (4.1-5.3); Red Cell Distribution Width 14.6 % (12.1-15.1); White Blood Count 11.8 10^3/uL (4.0-10.0)
[2021-12-08 21:41] LABS: Alanine Aminotransferase 14 U/L (0-41); Albumin Level 3.6 g/dL (3.5-5.2); Alkaline Phosphatase 64 IU/L (40-130); Anion Gap 15.8 (5-19); Aspartate Amino Transferase 13 U/L (0-40); Blood Urea Nitrogen 19 mg/dL (8-23); Carbon Dioxide 23 mmol/L (22-29); Chloride 97 mmol/L (98-107); Globulin 3.6 g/dL (1.3-4.6); Glucose 251 mg/dL (65-115); Lactic Sepsis W/Reflex 0.9 mmol/L (0.5-2.2); Osmolality Calculated 283 mOsm/kg (285-295); Potassium 4.8 mmol/L (3.5-5.1); Sodium 131 mmol/L (136-145); Total Bilirubin 0.3 mg/dL (0.15-1.2); Total Protein 7.2 g/dL (6.6-8.7)
[2021-12-08] MEDS: piperacillin-tazobactam 3.375 GM in sodium chloride 0.9% (plus) 50 ML IV (21:47)
[2021-12-08 21:55] LABS: Add Urine Culture? Yes; Add Urine Microscopic? YES; Bacteria Urine TRACE /hpf; Bilirubin Urine Neg (Negative); Blood Urine 3+ (Negative); Glucose Urine UA Norm (Normal); Ketones Urine Negative (Negative); Leukocyte Esterase Urine 2+ (Negative); Nitrate Urine Negative (Negative); Protein Urine Trace (Negative); RBC Urine 0-4 /hpf (0-2); Squamous Epithelial Cell Urine 0-4 /hpf (0-5); Urine Appearance Hazy (CLEAR); Urine Color Yellow (Yellow); Urobilinogen Urine Norm (Negative); WBC Urine TOO NUMEROUS TO CNT /hpf (0-5); pH Urine 6 (5-7)
[2021-12-08] MEDS: sodium chloride 0.9% 1,000 ML 999 ML IV (22:46)
--- NOTE | 2021-12-08 23:08 | PM.HP ---
Providers/Chief Complaint Chief Complaint: severe uti, requests infusion History of Present Illness The patient is a 71-year-old male who was told by the ID to present to the emergency department presumably because of urine culture results which demonstrated resistance to oral antibiotics. The patient admits to onset of fever. He states that he has been feeling unwell for approximately 2 months and has been exhibiting anorexia. He admits to dysuria and 15 episodes of nocturia. He denies rigors, nausea, vomiting, cough, wheeze, vomiting, diarrhea, myalgia, chest pain, dyspnea. He admits to lightheadedness and dizziness. He presents for further evaluation Medications/Allergies Home Medications Medication Instructions Recorded Confirmed Last Taken Type alogliptin 12.5 mg tablet 12.5 mg PO DAILY@08/18/20 08/31/20 08/20/20 History amlodipine 5 mg tablet 5 mg PO DAILY@04 08/18/20 08/31/20 08/20/20 History aspirin 325 mg tablet 325 mg PO DAILY@08/18/20 08/31/20 08/20/20 History doxazosin 2 mg tablet 1 mg PO BEDTIME 08/18/20 08/31/20 Unknown History fluoride (sodium) 1.1 % dental 1 applic DENTAL DAILY 08/18/20 08/31/20 08/20/20 History cream (Sodium Fluoride 5000 Plus) glipizide 10 mg tablet 10 mg PO BID@08/18/20 08/31/20 08/20/20 History metformin 1,000 mg tablet 1,000 mg PO BID@08/18/20 08/31/20 08/20/20 History naproxen 500 mg tablet 500 mg PO BID PRN 08/18/20 08/31/20 08/20/20 History polyethylene glycol 3350 17 17 g PO DAILY PRN 08/18/20 08/31/20 Unknown History gram/dose oral powder (Miralax) potassium chloride 20 mEq 20 meq PO DAILY@08/18/20 08/31/20 08/20/20 History tablet,extended release pravastatin 80 mg tablet 80 mg PO DAILY@04 08/18/20 08/31/20 08/20/20 History tadalafil 20 mg tablet 20 mg PO PRN 08/18/20 08/31/20 Unknown History Allergies Allergy/AdvReac Type Severity Reaction Status Date / Time tamsulosin [From Flomax] Allergy Unknown Verified 08/18/20 09:39 PFSH Acute PFSH: Medical History DM type 2 (diabetes mellitus, type 2) Hyperlipidemia Hypertension Vitals/I&O/Wt Last Vital Signs Temp 98.7 F 12/08/21 17:25 Pulse 71 12/08/21 17:25 Resp 15 12/08/21 17:25 BP 167/71 12/08/21 17:25 Pulse Ox 98 12/08/21 17:25 12/08/21 12/08/21 12/09/21 14:59 22:59 06:59 Intake Total 50 / 50 Balance 50 / 50 Weight last 48 hrs Weight 97.976 kg Physical Exam Narrative: General: -Alert -No acute distress -No dyspnea -No tachypnea Head: -Atraumatic -Normocephalic Eyes: -Pupils equally round and reactive to light and accommodation -Extraocular muscles intact Neurological: -Cranial nerves II-XII intact Neck: -No jugular venous distention -No thyromegaly -No cervical lymphadenopathy Heart: -Regular rate -Regular rhythm -No murmurs -No gallops -No rubs Lungs: -No wheeze -No rhonchi -No rales ? Abdomen: -Normal bowel sounds in all four quadrants -No rebound -No guarding -No tenderness Extremities: -2/4 pulse in all four extremities -No clubbing -No cyanosis -No edema -No calf tenderness present bilaterally -Negative Kenia?s sign bilaterally Musculoskeletal: -5/5 bilateral upper extremity strength -5/5 bilateral lower extremity strength -Sensorium of bilateral upper extremities are equal and intact -Sensorium of bilateral lower extremities are equal and intact ? Additional Details / Additional Findings / Exceptions / Miscellaneous: Data : 12/08/21 21:00 12/08/21 21:00 Micro: Microbiology 12/08/21 21:00 Blood Culture - Preliminary Blood SPECIMEN COLLECTED 12/08/21 21:00 Blood Culture - Preliminary Blood SPECIMEN COLLECTED A&P Assessment and plan (1) Urinary tract infection due to extended-spectrum beta lactamase (ESBL) producing Escherichia coli: Status: Acute Plan Urinary tract infection. Per outside lab, patient has ESBL resistant E. coli. Blood culture ?2 pending. Urine culture pending. PSA level pending. Primaxin 500 Mill grams IV every 6 hours Acute renal insufficiency. Will monitor creatinine intermittently. IV normal saline 75 ML's per hour Hyponatremia. We will monitor sodium level intermittently. IV normal saline at 75 ML's per hour Rectal dysfunction BPH Diabetes. Will check fasting glucose every before meals and at bedtime and provide insulin sliding scale Hyperlipidemia Hypertension DVT Proflex is. 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
[2021-12-08 23:30] LABS: Ketone (Acetest) Serum Negative (Negative)
[2021-12-08 23:34] LABS: Prostate Specific Antigen Scr 5.08 ng/mL (0-4)
[2021-12-09] VITALS (8 sets, daily range): BP systolic 137–194; BP diastolic 71–92; PULSE 64–75; RESP 13–20; TEMP 36.4–37.1; O2SAT 96–98
[2021-12-09 01:03] LABS: Glucose Point of Care 241 mg/dL (70-110)
[2021-12-09] MEDS: sodium chloride 0.9% 1,000 ML 75 ML IV ×2 (02:00→12:50)
[2021-12-09] MEDS: heparin 5,000 unit/mL INJ 1 mL 5000 UNIT SUBCUT ×2 (02:00→12:50)
[2021-12-09 05:36] LABS: Basophils # 0.1 10^3/uL (0.0-0.1); Basophils % 0.7 %; Eosinophils # 0.1 10^3/uL (0.0-0.8); Hematocrit 34.1 % (42.0-52.0); Hemoglobin 11.1 g/dL (11.7-16.6); Lymphocytes # 1.1 10^3/uL (0.8-4.8); Lymphocytes % 11.1 %; Mean Corpuscular HGB Conc 32.6 g/dL (30.0-36.0); Mean Corpuscular Hemoglobin 30.1 pg (28.0-34.0); Mean Corpuscular Volume 92.4 fl (80-94); Mean Platelet Volume 9.8 fL (7.4-10.4); Monocytes # 1.1 10^3/uL (0.2-0.9); Monocytes % 11.5 %; Neutrophils # 7.23 10^3/uL (1.8-7.7); Neutrophils % 73.5 %; Nucleated Red Blood Cells % 0 %; Platelet Count 181 10^3/cmm (130-400); Red Blood Count 3.69 10^6/uL (4.1-5.3); Red Cell Distribution Width 14.6 % (12.1-15.1); White Blood Count 9.8 10^3/uL (4.0-10.0)
[2021-12-09 05:57] LABS: Blood Urea Nitrogen 17 mg/dL (8-23); Calcium 9.2 mg/dL (8.5-10.5); Carbon Dioxide 20 mmol/L (22-29); Chloride 101 mmol/L (98-107); Glucose 254 mg/dL (65-115); Osmolality Calculated 282 mOsm/kg (285-295); Sodium 131 mmol/L (136-145)
[2021-12-09 06:18] LABS: Glucose Point of Care 215 mg/dL (70-110)
[2021-12-09] MEDS: insulin lispro 100 unit/1 mL SUBCUT ×3 (08:41→18:03)
--- NOTE | 2021-12-09 10:40 | PC.CHAP ---
Pastoral Care Encounter/Spiritual Assessment Type of Contact [] Declined big data software engineer visit [] Patient/Family/Request visit [] Outpatient visit [] Follow-up visit [] Physician referral [] Code/Alert [] Routine visit [] Staff referral [] Actively dying [] Patient sleeping [] Family support [] [] Out of room [] Palliative care [] [] Receiving care in room [] Pre-surgical visit [] Trauma [] Long length of stay [] ICU visit [x] Other: [place] Relational/Emotional Strength [] Patient feels connected with others/family/visitors/staff [] Distress [] Loneliness/isolation [] Abandonment Spirituality of Patient [] Person of Fifi [] Attends Latter Day of their Fifi [] Believes in Prayer [] Reads Bible or Moravian materials [] There are Spiritual issues to be addressed Obgyn Hospitalist Physician Interventions [] Prayer [] Active listening [] Non-anxious presence [] Spiritual/emotional support [] Crisis/trauma care [] Spiritual counseling [] Bereavement support [] Provided bereavement packet [] Provided Bible/devotional materials [] Provided toy/stuffed animal, coloring book to patient or family member [] Provided Communion [] Anointing/Lookout [] Salvation [] Completed spiritual assessment [] Other: Impact on Illness or Injury [] Angry [] Fearful [] Anxious [] Often cries [] Exhaustion [] Unable to work [] Unable to attend jehovah's witness [] Unable to walk/stand [] Unable to read [] Unable to drive [] Unable to eat/drink [] Unable to sleep [] Unable to be with family [] Patient intubated [] Other: Summary [place] Time spent with patient 5 mins
--- NOTE | 2021-12-09 11:22 | CT_ITS ---
WS: [id number] CT ABDOMEN AND PELVIS NONCONTRAST HISTORY: UTI TECHNIQUE: Imaging performed through the abdomen and pelvis. Coronal and sagittal reformats are submi tted. All CT scans at [facility] use at least one of these dose optimization techniques: auto mated exposure control; mA and/or kV adjustment per patient size (includes targeted exams where dose is matched to clinical indication); or iterative reconstruction. DLP: 1964.08 mGy.cm COMPARISON: None available. Lower thorax: Mild cardiomegaly. Lung bases are clear. Small hiatal hernia. Liver: Mild hepatomegaly and diffuse mild hepatic steatosis. Gallbladder: Mildly contracted gallbladder. Common bile duct and intrahepatic ducts are difficult to visualize without IV contrast. Pancreas: Normal size and attenuation. Normal pancreatic duct. No pancreatitis or mass. Spleen: Normal. Adrenal glands: Normal. No mass. Right kidney: Normal size RIGHT kidney. Mild perinephric stranding around the kidney. No renal stones or obstruction. Left kidney: Mild enlargement with moderate perinephric stranding. No renal calculi or obstruction. T here is also mild LEFT periureteral stranding. Aorta: Mild atherosclerosis abdominal aorta with no aneurysm. No free fluid, intraperitoneal air or significant lymphadenopathy. GI tract: Mildly distended stomach with food products. No small bowel obstruction. There is mild diff use fecal retention throughout the colon. The appendix is normal. Mild mucosal thickening throughout the sigmoid colon and tortuosity. Abdominal wall: Negative. No hernia. Pelvis: Mild urinary bladder dilatation. No free fluid. Very mildly prominent prostate gland. No ashu opathy. Bilateral patent inguinal canals containing fat only. Osseous structures: Degenerative RIGHT curvature lumbar scoliosis with asymmetric narrowing of the di sc spaces. No acute fracture. CT/CT abdomen pelvis wo con [id number] IMPRESSION: 1. Bilateral perinephric stranding, mild on the RIGHT and moderate on the LEFT consistent with history of urinary tract infection. No obstructing calcificati ons are identified. No hydronephrosis. 2. Hepatic steatosis. 3. Mildly contracted gallbladder.
[2021-12-09 11:30] LABS: Estmated Average Glucose 226; Hemoglobin A1C 9.5 % (4.0-6.0)
--- NOTE | 2021-12-09 11:43 | PM.PN ---
Subjective Subjective: Mr. Mcguire has been getting antibiotics outpatient but his symptoms were not improving finally he had to be admitted to the hospital for use of IV antibiotics, patient is stating that he has received steroids from his PCP which caused worsening of his blood sugar as well On arrival creatinine was high along leukocytosis with IV fluids and use of Primaxin leukocytosis and creatinine has improved, he has been hypertensive, added metoprolol and amlodipine Continue Primaxin for now, on Monday will give ertapenem and then continue ertapenem at the time of discharge for 14 days, requested PICC line placement, he is afebrile no signs of sepsis Digital rectal exam did not show prostatitis, nontender prostate, Vitals/I&O/Wt Last Vital Signs Temp 98.8 F 12/09/21 07:36 Pulse 69 12/09/21 07:36 Resp 13 12/09/21 07:36 BP 155/74 12/09/21 07:36 Pulse Ox 97 12/09/21 07:36 12/08/21 12/09/21 12/09/21 22:59 06:59 14:59 Intake Total 50 / 50 1300 / 1350 100 / 100 Output Total 400 / 400 600 / 600 Balance 50 / 50 900 / 950 -500 / -500 Weight last 48 hrs Weight 97.976 kg Physical Exam Narrative: Very pleasant cooperative Skin rash seems to be improving at the bedside MAI, FERNIE Patient rectal exam did not reveal prostatitis, nontender prostate, BPH S1, S2 Hypertensive Nonfocal neuro exam Saturating well on room air Has proximal muscle weakness Romberg sign negative Data : 12/09/21 05:03 12/09/21 05:03 Micro: Microbiology 12/08/21 21:00 Blood Culture - Preliminary Blood SPECIMEN COLLECTED 12/08/21 21:00 Blood Culture - Preliminary Blood SPECIMEN COLLECTED A&P Assessment and plan (1) Urinary tract infection due to extended-spectrum beta lactamase (ESBL) producing Escherichia coli: Status: Acute (2) DORENE (acute kidney injury): Status: Acute (3) Hyperglycemia: Status: Acute (4) Hyponatremia: Status: Acute (5) Abnormal PSA: Status: Acute (6) DM type 2 (diabetes mellitus, type 2): Status: Acute (7) Hypertension: Status: Acute Plan 71-year-old male who has been treated outpatient with antibiotics for his UTI, patient is stating that he got steroids as well for treatment of UTI which caused hyperglycemia and he was admitted at [facility] He had to come because of positive ESBL urine culture which were taken on 12/01 ESBL UTI Continue Primaxin, at the time of discharge would recommend ertapenem 1 g daily for 14 days at least, will request PICC line placement, he is not septic, no signs of bacteremia DORENE secondary to dehydration and UTI: Improved No signs of prostatitis, BPH Abnormal PSA, patient has outpatient urology follow-up appointment as well Hyperglycemia related to type 2 diabetes he does not know his previous hemoglobin A1c, does not take insulin, check A1c level, continue normal saline for now Hyponatremia with hyperglycemia, continue normal saline, currently on moderate dose sliding scale, follow-up on A1c level DVT prophylaxis Heparin DNR/DNI Records from outside reviewed, ESBL sensitive to ertapenem and imipenem Plan to discharge him and his brother on same day Attestations Medical Necessity Statement*: Continue antibiotics until Monday Time Spent in Patient Care: 35mins Coding Level of Care Code Acute 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
[2021-12-09 11:48] LABS: Procalcitonin 0.15 ng/mL (0-0.5); Vitamin B12 661 pg/mL (232-1245)
[2021-12-09 12:15] LABS: Glucose Point of Care 331 mg/dL (70-110)
[2021-12-09 12:15] LABS: Glucose Point of Care 287 mg/dL (70-110)
[2021-12-09] MEDS: metoprolol tartrate 25 mg Tablet 12.5 MG PO ×2 (12:50→21:16)
[2021-12-09] MEDS: amlodipine 10 mg Tablet PO (12:50)
[2021-12-09 17:48] LABS: Glucose Point of Care 205 mg/dL (70-110)
[2021-12-09 21:04] LABS: Glucose Point of Care 210 mg/dL (70-110)
[2021-12-10 04:00] VITALS: BP 141/74; PULSE 70; RESP 20; TEMP 36.5; O2SAT 96
[2021-12-10 05:24] LABS: Basophils # 0.1 10^3/uL (0.0-0.1); Basophils % 0.7 %; Eosinophils # 0.1 10^3/uL (0.0-0.8); Hematocrit 33.6 % (42.0-52.0); Hemoglobin 11.3 g/dL (11.7-16.6); Lymphocytes # 1.1 10^3/uL (0.8-4.8); Lymphocytes % 10.5 %; Mean Corpuscular HGB Conc 33.6 g/dL (30.0-36.0); Mean Corpuscular Volume 92.1 fl (80-94); Mean Platelet Volume 9.9 fL (7.4-10.4); Monocytes # 1.2 10^3/uL (0.2-0.9); Monocytes % 11.5 %; Neutrophils # 7.49 10^3/uL (1.8-7.7); Nucleated Red Blood Cells % 0 %; Platelet Count 194 10^3/cmm (130-400); Red Blood Count 3.65 10^6/uL (4.1-5.3); Red Cell Distribution Width 14.6 % (12.1-15.1); White Blood Count 10.1 10^3/uL (4.0-10.0)
[2021-12-10 05:46] LABS: Anion Gap 12.5 (5-19); Blood Urea Nitrogen 19 mg/dL (8-23); Calcium 9.2 mg/dL (8.5-10.5); Carbon Dioxide 22 mmol/L (22-29); Chloride 100 mmol/L (98-107); Glucose 241 mg/dL (65-115); Osmolality Calculated 280 mOsm/kg (285-295); Potassium 4.5 mmol/L (3.5-5.1); Sodium 130 mmol/L (136-145)
[2021-12-10 06:24] LABS: Glucose Point of Care 229 mg/dL (70-110)
[2021-12-10 07:40] VITALS: BP 147/70; PULSE 65; RESP 18; TEMP 36.7; O2SAT 96
[2021-12-10] MEDS: amlodipine 10 mg Tablet PO (08:33)
[2021-12-10] MEDS: metoprolol tartrate 25 mg Tablet 12.5 MG PO ×2 (08:33→20:12)
[2021-12-10] MEDS: sodium chloride 0.9% 1,000 ML 75 ML IV (08:34)
[2021-12-10] MEDS: insulin lispro 100 unit/1 mL SUBCUT ×2 (08:34→12:07)
[2021-12-10 08:37] LABS: Glucose Point of Care 313 mg/dL (70-110)
--- NOTE | 2021-12-10 09:00 | PM.PN ---
Subjective Subjective: Mr. Mcguire is very concerned about hypoglycemic event, he is claiming that nursing are not checking his blood sugar after meals I did director counseling bureau him that we mostly do ACHS sliding scale, and should wait at least 2 hours after meal to check blood sugar White count 10.1 Afebrile Urine culture pending, blood cultures sterile Sodium 130 Patient is still anorexic He does take medroxyprogesterone at home Creatinine 1.1 Hyperglycemia His hemoglobin A1c is 9.5 I did recommend Lantus and sliding scale however patient has some reservations related to long-term insulin use, he is concerned about hypoglycemic event, we did discuss that I will put him on Lantus and he can watch his blood sugar in the next few months and if he keeps losing weight he might not need it in future, considering his previous history of hypoglycemic event he decided not to use insulin at the time of discharge Vitals/I&O/Wt Last Vital Signs Temp 98.1 F 12/10/21 07:40 Pulse 65 12/10/21 07:40 Resp 18 12/10/21 07:40 BP 147/70 12/10/21 07:40 Pulse Ox 96 12/10/21 07:40 12/09/21 12/10/21 12/10/21 22:59 06:59 14:59 Intake Total 100 / 920 2500 / 3420 Output Total 800 / 1400 2400 / 3800 Balance -700 / -480 100 / -380 Weight last 48 hrs Weight 97.976 kg Physical Exam Narrative: Patient is very pleasant eating cereal Skin rash is improving Awake and alert Saturating well on room air Abdomen soft S1, S2 Bilateral breath sounds with mild rhonchi at the base of the lungs No active labored breathing Data : 12/10/21 04:53 12/10/21 04:53 Micro: Microbiology 12/08/21 21:00 Urine Culture - Preliminary Urine,Clean Catch Gram Negative Rods 12/08/21 21:00 Blood Culture - Preliminary Blood NEGATIVE TO DATE 12/08/21 21:00 Blood Culture - Preliminary Blood NEGATIVE TO DATE A&P Assessment and plan (1) Abnormal PSA: Status: Acute (2) Hyponatremia: Status: Acute (3) Hyperglycemia: Status: Acute (4) DORENE (acute kidney injury): Status: Acute (5) Urinary tract infection due to extended-spectrum beta lactamase (ESBL) producing Escherichia coli: Status: Acute (6) Hyperlipidemia: Status: Acute (7) DM type 2 (diabetes mellitus, type 2): Status: Acute (8) Hypertension: Status: Acute Plan ESBL UTI Recommended PICC line placement and 14 days of ertapenem 1 g daily Perinephric stranding noted bilateral kidneys, pyelonephritis No active abscess Afebrile Leukocytosis around 10,000 Blood culture sterile We will follow up with urine culture, previous culture from 12/01 showing ESBL UTI sensitive to ertapenem and imipenem Anorexia related to diabetes and deconditioning, he has been taking medroxyprogesterone I would avoid mirtazapine due to history of syncopal events Hemoglobin A1c 9.5, uncontrolled type 2 diabetes Patient is very concerned about hypoglycemic event he does not want to use insulin at all at the time of discharge, He is asking that nurses recheck his blood sugar after meals as well Continue normal saline Hyponatremia related to poor p.o. intake and hyperglycemia Check TSH, uric acid, serum and urine osmolality Hypertension: Continue amlodipine, I have added metoprolol as well, avoid SAMM or ARB for now DORENE related to UTI: Resolved with IV fluid hydration Abnormal PSA, no signs of prostatitis, prostate is not firm, would recommend outpatient follow-up, patient already has an appointment with Dr. Travis Consistent carb diet Encourage out of bed to chair, Plan to continue IV antibiotics until this weekend, will discharge him over this weekend Need PICC line, ertapenem 1 g daily for 14 days at discharge Attestations Medical Necessity Statement*: Continue medical management Time Spent in Patient Care: 30mins Coding Level of Care Code Acute Handle Finisher for [facility] Fwd Diagnoses Abnormal PSA R97.20 Hyponatremia E87.1 Hyperglycemia R73.9 DORENE (acute kidney injury) N17.9 Urinary tract infection due to extended-spectrum beta lactamase (ESBL) producing Escherichia coli N39.0; B96.29; Z16.12 Hyperlipidemia E78.5 DM type 2 (diabetes mellitus, type 2) E11.9 Hypertension I10
[2021-12-10 09:50] LABS: Glucose Point of Care 443 mg/dL (70-110)
[2021-12-10 10:41] LABS: Thyroid Stimulating Hormone 2.29 uIU/mL (0.27-4.20); Uric Acid 2.9 mg/dL (3.4-7.0)
[2021-12-10 11:48] LABS: Glucose Point of Care 355 mg/dL (70-110)
[2021-12-10 11:53] VITALS: BP 136/68; PULSE 63; RESP 18; TEMP 36.6; O2SAT 96
--- NOTE | 2021-12-10 12:11 | XR_ITS ---
WS: [id number] CHEST XRAY TECHNIQUE: Portable chest. CLINICAL INFORMATION: Post PICC placement COMPARISON: December 08, 2021 FINDINGS: RIGHT PICC line with tip at the SVC/RA junction. No visualized pneumothorax. Heart: Normal cardiac silhouette. Lungs: Lungs are clear. No consolidation or pleural effusion. Bones: Normal visualized bony structures. XR/XR chest 1V portable [id number] IMPRESSION: RIGHT PICC line with tip at the SVC/RA junction. No visualized pneumothorax.
[2021-12-10 15:56] VITALS: BP 144/70; PULSE 64; RESP 18; TEMP 37.1; O2SAT 97
[2021-12-10 16:55] LABS: Glucose Point of Care 349 mg/dL (70-110)
--- NOTE | 2021-12-10 18:36 | PC.NURSE ---
Patients blood sugar has been in the 300s most the day. Patient has not wanted his insulin or all of his insulin. Education given.
[2021-12-10 19:30] VITALS: BP 155/85; PULSE 66; RESP 16; TEMP 36.3; O2SAT 96
[2021-12-10 20:31] LABS: Glucose Point of Care 282 mg/dL (70-110)
[2021-12-11] VITALS (7 sets, daily range): BP systolic 138–153; BP diastolic 54–80; PULSE 61–71; RESP 16–18; TEMP 36.4–37; O2SAT 95–98
[2021-12-11 05:40] LABS: Basophils # 0.1 10^3/uL (0.0-0.1); Basophils % 0.6 %; Eosinophils # 0.1 10^3/uL (0.0-0.8); Eosinophils % 1.1 %; Hematocrit 33.3 % (42.0-52.0); Hemoglobin 11.1 g/dL (11.7-16.6); Lymphocytes # 1.1 10^3/uL (0.8-4.8); Lymphocytes % 10.9 %; Mean Corpuscular HGB Conc 33.3 g/dL (30.0-36.0); Mean Corpuscular Hemoglobin 30.3 pg (28.0-34.0); Mean Platelet Volume 9.6 fL (7.4-10.4); Monocytes # 1.1 10^3/uL (0.2-0.9); Monocytes % 11.1 %; Neutrophils % 74.7 %; Nucleated Red Blood Cells % 0 %; Platelet Count 144 10^3/cmm (130-400); Red Blood Count 3.66 10^6/uL (4.1-5.3); Red Cell Distribution Width 14.6 % (12.1-15.1); White Blood Count 10.1 10^3/uL (4.0-10.0)
[2021-12-11 05:59] LABS: Blood Urea Nitrogen 17 mg/dL (8-23); Calcium 9.1 mg/dL (8.5-10.5); Carbon Dioxide 22 mmol/L (22-29); Chloride 100 mmol/L (98-107); Glucose 262 mg/dL (65-115); Osmolality Calculated 281 mOsm/kg (285-295); Sodium 130 mmol/L (136-145)
[2021-12-11 06:06] LABS: Anion Gap 12.9 (5-19); Potassium 4.9 mmol/L (3.5-5.1)
[2021-12-11 06:22] LABS: Glucose Point of Care 245 mg/dL (70-110)
[2021-12-11] MEDS: insulin lispro 100 unit/1 mL SUBCUT ×2 (08:28→12:59)
[2021-12-11] MEDS: metoprolol tartrate 25 mg Tablet 12.5 MG PO ×2 (08:29→21:05)
[2021-12-11] MEDS: amlodipine 10 mg Tablet PO (08:29)
--- NOTE | 2021-12-11 09:57 | PC.SOCIAL ---
IMM update IMM updated with patient and family at bedside. Copy Pg 2 provided. Verbalized an understanding. Initialled, dated, timed, and placed in chart.
[2021-12-11] MEDS: sodium chloride 0.9% 1,000 ML 75 ML IV (10:57)
[2021-12-11 11:03] LABS: Glucose Point of Care 341 mg/dL (70-110)
[2021-12-11] MEDS: sennosides-docusate Tablet 1 TAB PO (12:59)
[2021-12-11] MEDS: docusate sodium 100 mg Capsule PO (12:59)
--- NOTE | 2021-12-11 13:14 | P.PN_ITS ---
Subjective Subjective: Patient is afebrile Urine culture showing Citrobacter White count 10.1 Hyperglycemia I will increase his dose of Lantus to 10 units, moderate sliding scale, nurse updated PICC line has been placed on 12/10 Plan to give him on ertapenem tomorrow and then discharge Vitals/I&O/Wt Last Vital Signs Temp 98.2 F 12/11/21 11:23 Pulse 65 12/11/21 11:23 Resp 18 12/11/21 11:23 BP 147/80 12/11/21 11:23 Pulse Ox 97 12/11/21 11:23 12/10/21 12/11/21 12/11/21 22:59 06:59 14:59 Intake Total 110 / 1210 500 / 1710 1210 / 1210 Output Total 850 / 1200 1075 / 2275 475 / 475 Balance -740 / 10 -575 / -565 735 / 735 Physical Exam Narrative: Patient is sitting relaxing in his recliner Skin rash has improved S1, S2 Abdomen soft CVA tenderness negative Hydration status better as compared to yesterday EOMI, PERRLA Nonfocal neuro exam Satting well on room air Data : 12/11/21 05:32 12/11/21 05:32 Micro: Microbiology 12/08/21 21:00 Urine Culture - Final Urine,Clean Catch Citrobacter murliniae A&P Assessment and plan (1) Abnormal PSA: Status: Acute (2) Hyponatremia: Status: Acute (3) Hyperglycemia: Status: Acute (4) DORENE (acute kidney injury): Status: Acute (5) Urinary tract infection due to extended-spectrum beta lactamase (ESBL) producing Escherichia coli: Status: Acute (6) Syncope: Status: Acute (7) Hyperlipidemia: Status: Acute (8) DM type 2 (diabetes mellitus, type 2): Status: Acute (9) Hypertension: Status: Acute Plan ESBL UTI Plan to give him 1 g of ertapenem on Monday and then discharged PICC line placed 10/12 Urine culture showing Citrobacter Afebrile Blood culture negative 14-day IV therapy DORENE: Resolved with IV fluids Hyperglycemia related type 2 diabetes hemoglobin A1c around 9 Patient is stating that he is not interested in continuation of insulin at the time of discharge, however I will increase the dose of Lantus 10 units, moderate sliding scale, Patient is stating that he is concerned about hypoglycemic events, he does not want to use insulin at any cost despite my stress upon the point that oral antihyperglycemic agents might not be adequate he might get recurrent UTI Continue hospitalization Consistent carb diet Constipation: Add stool softener DNR DNI Skin rash: Improved DVT prophylaxis: Heparin Attestations Medical Necessity Statement*: Anticipating discharge tomorrow after dose of ertapenem Time Spent in Patient Care: 30 Coding Level of Care Code Acute Cloud Engagement Partner for g Fwd Diagnoses Abnormal PSA R97.20 Hyponatremia E87.1 Hyperglycemia R73.9 DORENE (acute kidney injury) N17.9 Urinary tract infection due to extended-spectrum beta lactamase (ESBL) producing Escherichia coli N39.0; B96.29; Z16.12 Syncope R55 Hyperlipidemia E78.5 DM type 2 (diabetes mellitus, type 2) E11.9 Hypertension I10
[2021-12-11 17:04] LABS: Glucose Point of Care 201 mg/dL (70-110)
[2021-12-11 21:08] LABS: Glucose Point of Care 361 mg/dL (70-110)
--- NOTE | 2021-12-11 21:30 | PC.NURSE ---
Blood sugar was 361 at bedtime. Patient refused his blood sugar and said if he takes the insulin then it will drop it below 250. Patient wants to stay above 250 because he says he feels worse when its below that. This nurse provided education about insulin to the patient.
[2021-12-12] MEDS: heparin 5,000 unit/mL INJ 1 mL 5000 UNIT SUBCUT (00:26)
[2021-12-12 04:00] VITALS: BP 152/78; PULSE 62; RESP 16; TEMP 36.6; O2SAT 97
[2021-12-12 05:34] LABS: Basophils # 0.1 10^3/uL (0.0-0.1); Basophils % 0.7 %; Eosinophils # 0.1 10^3/uL (0.0-0.8); Hematocrit 34.5 % (42.0-52.0); Hemoglobin 11.2 g/dL (11.7-16.6); Lymphocytes # 1.4 10^3/uL (0.8-4.8); Mean Corpuscular HGB Conc 32.5 g/dL (30.0-36.0); Mean Corpuscular Hemoglobin 29.8 pg (28.0-34.0); Mean Corpuscular Volume 91.8 fl (80-94); Mean Platelet Volume 10.7 fL (7.4-10.4); Monocytes # 1.2 10^3/uL (0.2-0.9); Monocytes % 11.4 %; Neutrophils # 7.53 10^3/uL (1.8-7.7); Neutrophils % 72.2 %; Nucleated Red Blood Cells % 0 %; Platelet Count 184 10^3/cmm (130-400); Red Blood Count 3.76 10^6/uL (4.1-5.3); Red Cell Distribution Width 14.6 % (12.1-15.1); White Blood Count 10.4 10^3/uL (4.0-10.0)
[2021-12-12 06:00] VITALS: PULSE 68
[2021-12-12 06:01] LABS: Blood Urea Nitrogen 18 mg/dL (8-23); Calcium 9.1 mg/dL (8.5-10.5); Carbon Dioxide 21 mmol/L (22-29); Chloride 100 mmol/L (98-107); Glucose 264 mg/dL (65-115); Osmolality Calculated 285 mOsm/kg (285-295); Sodium 132 mmol/L (136-145)
[2021-12-12 06:05] LABS: Anion Gap 15.7 (5-19); Potassium 4.7 mmol/L (3.5-5.1)
[2021-12-12] MEDS: ertapenem 1,000 MG in sodium chloride 0.9% (plus) 100 ML 200 MG IV (06:56)
[2021-12-12 07:33] VITALS: BP 150/75; PULSE 64; RESP 13; O2SAT 97
[2021-12-12] MEDS: amlodipine 10 mg Tablet PO (08:24)
[2021-12-12] MEDS: metoprolol tartrate 25 mg Tablet 12.5 MG PO (08:24)
[2021-12-12] MEDS: docusate sodium 100 mg Capsule PO (08:24)
[2021-12-12] MEDS: insulin lispro 100 unit/1 mL SUBCUT (08:24)
[2021-12-12] MEDS: sennosides-docusate Tablet 1 TAB PO (08:24)
[2021-12-12 08:44] LABS: Glucose Point of Care 348 mg/dL (70-110)
--- NOTE | 2021-12-12 10:33 | PM.DCS ---
Discharge Providers Date of Admission: 12/08/21 23:00 Date of Discharge: December 12, 2021 Attending Provider at Admission: Valentina Eduardo DO Attending Provider at Discharge: Chata Hebert MD Diagnoses at Discharge Discharge Diagnosis (1) Abnormal PSA: Status: Acute (2) Hyponatremia: Status: Acute (3) Hyperglycemia: Status: Acute (4) DORENE (acute kidney injury): Status: Acute (5) Urinary tract infection due to extended-spectrum beta lactamase (ESBL) producing Escherichia coli: Status: Acute (6) Syncope: Status: Acute (7) Hyperlipidemia: Status: Acute (8) DM type 2 (diabetes mellitus, type 2): Status: Acute (9) Hypertension: Status: Acute Reason for Visit Reason for Visit: severe uti, requests infusion Hospital Course Hospital Course 71-year-old male who has history of type 2 diabetes, hypertension, dyslipidemia, presented to the hospital for positive urine culture which was done [facility], ESBL positive on urine culture taken on 12/02 sensitive to Carbapenem's. Patient was admitted for management and evaluation of UTI, I started patient on IV fluids, requested CT abdomen pelvis once creatinine improved, it showed pyelonephritis, his white count, creatinine improved with use of antibiotics and IV fluids. He remained afebrile. Blood cultures negative. Repeat urine culture showed Citrobacter. During this hospitalization his sugar stayed consistently above 200 mg/dL, hemoglobin A1c 9.5, he is reluctant to use insulin stating that he is afraid of low sugar attacks. I did personnel counselor him to use long-acting insulin 10 units at bedtime and use low-dose sliding scale before meals, instructions were given to the patient and his as well. I have sent all my prescriptions to [facility] pharmacy in [place]. I am adding lisinopril and amlodipine for his hypertension. Asked him to discontinue taking potassium supplements at home. He should not take steroids at any cost because of labile blood sugar. Patient is stating that he was given steroid shot for UTI treatment erroneously by his PCP. I will discontinue glipizide as well. I am not able to see GFR during this BMP however previous GFR reported is around 83. We will ask him to follow-up with his PCP to see if we need to discontinue Metformin in case of further decline in GFR. His hyponatremia improved with IV fluid hydration, he has been experiencing poor p.o. intake likely related to pyelonephritis and diabetic gastroparesis. I recommended against Megace that he has been taking at home. Sodium level at the time of discharge 132, creatinine 1.2, white count 10.4. He is afebrile. For his ESBL UTI treatment I have recommended 14 days of ertapenem 1 g daily, during hospitalization he received Primaxin. Right arm PICC line has been secured. surgery manager to arrange 14-day 1 g ertapenem After 14 days he will need repeat urinalysis and culture from his PCP Physical Exam Narrative: Patient is sitting relaxing in his recliner Skin rash has improved S1, S2 Abdomen soft CVA tenderness negative Hydration status better as compared to yesterday EOMI, PERRLA Nonfocal neuro exam Satting well on room air Discharge Data Studies Completed and Pending Completed Studies During Hospitalization Category Date Time Status CT abdomen pelvis wo con [id number] Routine Cat Scan 12/09/21 11:22 Completed CXRP [XR chest 1V portable [id number]] Routine Exams 12/10/21 12:11 Completed XR chest 1V portable [id number] Urgent Exams 12/08/21 20:40 Completed Pending at discharge Category Date Time Status Blood Culture Stat Lab 12/08/21 21:00 Results Osmolality Serum Routine Lab 12/10/21 11:48 Received Osmolality Urine Routine Lab 12/10/21 11:19 Received Radiology Impressions Abdomen/Pelvis CT 12/09/21 11:22 IMPRESSION: 1. Bilateral perinephric stranding, mild on the RIGHT and moderate on the LEFT consistent with history of urinary tract infection. No obstructing calcifications are identified. No hydronephrosis. 2. Hepatic steatosis. 3. Mildly contracted gallbladder. Chest X-Ray 12/10/21 12:11 IMPRESSION: RIGHT PICC line with tip at the SVC/RA junction. No visualized pneumothorax. Laboratory Results WBC 10.4 10^3/uL (4.0-10.0) H 12/12/21 05:15 RBC 3.76 10^6/uL (4.1-5.3) L 12/12/21 05:15 Hgb 11.2 g/dL (11.7-16.6) L 12/12/21 05:15 Hct 34.5 % (42.0-52.0) L 12/12/21 05:15 MCV 91.8 fl (80-94) 12/12/21 05:15 MCH 29.8 pg (28.0-34.0) 12/12/21 05:15 MCHC 32.5 g/dL (30.0-36.0) 12/12/21 05:15 RDW 14.6 % (12.1-15.1) 12/12/21 05:15 Plt Count 184 10^3/cmm (130-400) 12/12/21 05:15 MPV 10.7 fL (7.4-10.4) H 12/12/21 05:15 Neut % (Auto) 72.2 % 12/12/21 05:15 Lymph % (Auto) 13.0 % 12/12/21 05:15 [place] % (Auto) 11.4 % 12/12/21 05:15 Eos % (Auto) 1.0 % 12/12/21 05:15 Baso % (Auto) 0.7 % 12/12/21 05:15 Neut # (Auto) 7.53 10^3/uL (1.8-7.7) 12/12/21 05:15 Lymph # (Auto) 1.4 10^3/uL (0.8-4.8) 12/12/21 05:15 [place] # (Auto) 1.2 10^3/uL (0.2-0.9) H 12/12/21 05:15 Eos # (Auto) 0.1 10^3/uL (0.0-0.8) 12/12/21 05:15 Baso # (Auto) 0.1 10^3/uL (0.0-0.1) 12/12/21 05:15 Nucleated RBC % (auto) 0 % 12/12/21 05:15 Nucleated RBCs # 0.0 /100WBC 12/12/21 05:15 Sodium 132 mmol/L (136-145) L 12/12/21 05:15 Potassium 4.7 mmol/L (3.5-5.1) 12/12/21 05:15 Chloride 100 mmol/L (98-107) 12/12/21 05:15 Carbon Dioxide 21 mmol/L (22-29) L 12/12/21 05:15 Anion Gap 15.7 (5-19) 12/12/21 05:15 BUN 18 mg/dL (8-23) 12/12/21 05:15 Creatinine 1.2 mg/dL (0.7-1.2) 12/12/21 05:15 GFR Calculation Not Reportable 12/12/21 05:15 Glucose 264 mg/dL (65-115) H 12/12/21 05:15 POC Glucose 348 mg/dL (70-110) H 12/12/21 00:03 Estimat Average Glucose 226 12/09/21 05:03 Hemoglobin A1c 9.5 % (4.0-6.0) H 12/09/21 05:03 Calculated Osmolality 285 mOsm/kg (285-295) 12/12/21 05:15 Lactic Acid 0.9 mmol/L (0.5-2.2) 12/08/21 21:00 Uric Acid 2.9 mg/dL (3.4-7.0) L 12/10/21 10:00 Calcium 9.1 mg/dL (8.5-10.5) 12/12/21 05:15 Total Bilirubin 0.3 mg/dL (0.15-1.2) 12/08/21 21:00 AST 13 U/L (0-40) 12/08/21 21:00 ALT 14 U/L (0-41) 12/08/21 21:00 Alkaline Phosphatase 64 IU/L (40-130) 12/08/21 21:00 Total Protein 7.2 g/dL (6.6-8.7) 12/08/21 21:00 Albumin 3.6 g/dL (3.5-5.2) 12/08/21 21:00 Globulin 3.6 g/dL (1.3-4.6) 12/08/21 21:00 PSA Screen 5.08 ng/mL (0-4) H 12/08/21 21:00 Vitamin B12 661 pg/mL (232-1245) 12/09/21 05:03 Vitamin B12 Cancelled 12/09/21 05:03 Procalcitonin 0.15 ng/mL (0-0.5) 12/09/21 05:03 TSH 2.29 uIU/mL (0.27-4.20) 12/10/21 10:00 Urine Color Yellow (Yellow) 12/08/21 21:00 Urine Appearance Hazy (CLEAR) A 12/08/21 21:00 Urine pH 6 (5-7) 12/08/21 21:00 Ur Specific [place] 1.010 (1.005-1.030) 12/08/21 21:00 Urine Protein Trace (Negative) 12/08/21 21:00 Urine Glucose (UA) Norm (Normal) 12/08/21 21:00 Urine Ketones Negative (Negative) 12/08/21 21:00 Urine Blood 3+ (Negative) H 12/08/21 21:00 Urine Nitrate Negative (Negative) 12/08/21 21:00 Urine Bilirubin Neg (Negative) 12/08/21 21:00 Urine Urobilinogen Norm mg/dL (Negative) 12/08/21 21:00 Ur Leukocyte Esterase 2+ (Negative) H 12/08/21 21:00 Urine RBC 0-4 /hpf (0-2) H 12/08/21 21:00 Urine WBC Too numerous to cnt /hpf (0-5) H 12/08/21 21:00 Ur Squamous Epith Cells 0-4 /hpf (0-5) H 12/08/21 21:00 Amorphous Sediment Not Reportable 12/08/21 21:00 Urine Bacteria Trace /hpf (NONE) 12/08/21 21:00 Serum Ketones Negative (Negative) 12/08/21 22:39 Vitals Last Vital Signs Temp 98 F 12/12/21 04:00 Pulse 64 12/12/21 07:33 Resp 13 12/12/21 07:33 BP 150/75 12/12/21 07:33 Pulse Ox 97 12/12/21 07:33 Discharge Plan Discharge Patient Disposition: Home Condition: Stable Prescriptions: New Stool Softener-Laxative 8.6-50 mg Tablet 1 tab PO DAILY Qty: 20 0RF amlodipine 10 mg Tablet 10 mg PO DAILY Qty: 30 0RF lisinopril 10 mg tablet 10 mg PO DAILY Qty: 60 2RF Lantus Solostar U-100 Insulin 100 unit/mL (3 mL) insulin pen 10 unit SUBCUT BEDTIME Qty: 15 2RF Novolog Flexpen U-100 Insulin 100 unit/mL (3 mL) insulin pen See Rx Instructions .ROUTE .COMPLEX Qty: 15 3RF Rx Instructions: as per sliding scale Continued aspirin 325 mg Tablet 325 mg PO DAILY@04 0RF amlodipine 5 mg Tablet 5 mg PO DAILY@04 0RF pravastatin 80 mg Tablet 80 mg PO DAILY@04 0RF polyethylene glycol 3350 [Miralax] 17 gram/dose Powder 17 g PO DAILY PRN (Reason: Constipation) 0RF tadalafil 20 mg Tablet 20 mg PO PRN 0RF alogliptin 12.5 mg Tablet 12.5 mg PO DAILY@04 0RF docusate sodium 50 mg Capsule 100 mg PO BID 0RF bisacodyl 10 mg Suppository 10 mg OR DAILY 0RF lidocaine 5 % Adhesive Patch,Medicated 1 patch TOPICAL DAILY 0RF Rx Instructions: leave on most painful area for up to 12 hrs bisacodyl 5 mg Tablet,Delayed Release (Dr/Ec) 5 mg PO DAILY 0RF metformin 500 mg Tablet Extended Release 24 Hr 500 mg PO DAILY 0RF acarbose 25 mg Tablet 25 mg PO TID 0RF Megestrol Acetate 10 ML 10 ml PO DAILY 0RF Discontinued glipizide 10 mg Tablet 10 mg PO BID@04,17 0RF naproxen 500 mg Tablet 500 mg PO BID PRN (Reason: Pain) 0RF potassium chloride 20 mEq Tablet Extended Release 20 meq PO DAILY@04 0RF cefdinir 300 mg Capsule 300 mg PO BID 0RF Discharge Orders: Discharge Order (Routine); Ordered 12/12/21 Ordered By: Chata Hebert Referrals: Outpatient [facility] Administration [Other] (You have an appointment to recieve your IV antibiotic on Monday12/13/21 at 11:30 am. If you have any questions or concerns please call them at [phone]. [phone].) Discharge Diet: Diabetic Discharge Activity: Increase activity as tolerated Patient Instructions: Insulin Lispro (By injection) (HumaLOG, HumaLOG Pen, Lispro-PFC,..., Urinary Tract Infection in Men (DC), Hypoglycemia in a Person with Diabetes (IP), What is Insulin (DC), How to Give an Insulin Injection (DC), Extended Spectrum Beta-Lactamase (GEN), What to Do if Your Blood Sugar is Low (DC), Opioid Safety, Pyelonephritis Activity Restrictions/Additional Instructions: You will finish 14 days of 1 g ertapenem for ESBL UTI, after 14 days need another urine analysis and culture Hemoglobin A1c is 9.5, it is very important that she take low-dose sliding scale insulin and Lantus long-acting insulin at nighttime I am starting with 10 units If fasting blood sugar should stay below 130 mg/dL in the morning If it is not staying below 130 mg/dL you can increase units of Lantus by 2 units to make a 12 units and then watch for next 3 to 4 days Maintain a diary for your blood pressure and blood glucose every day and take it to your primary care physician I am adding 2 medications for your blood pressure one is amlodipine and second is lisinopril I have discontinued glipizide, naproxen and potassium supplements Low-dose sliding scale, check blood glucose fasting in the morning before breakfast, and then before meals Blood Sugar Low Dose 60 ? 110 No insulin 111 ? 150 2 units 151 ? 200 4 units 201 ? 250 6 units 251 ? 300 8 units 301 ? 350 10 units >350 12 units (call physician) Discharge Attestations Time Spent in Discharge Care*: less than 30 min Quality Metrics Clinical Quality Measures [ No reported AMI, CVA or VTE this stay] Coding Level of Care Code Acute g [facility] note Diagnoses Abnormal PSA R97.20 Hyponatremia E87.1 Hyperglycemia R73.9 DORENE (acute kidney injury) N17.9 Urinary tract infection due to extended-spectrum beta lactamase (ESBL) producing Escherichia coli N39.0; B96.29; Z16.12 Syncope R55 Hyperlipidemia E78.5 DM type 2 (diabetes mellitus, type 2) E11.9 Hypertension I10
[2021-12-12 12:11] VITALS: BP 150/75; PULSE 64; RESP 13; O2SAT 97
[2021-12-13 17:12] LABS: Osmolality Serum 281 mOsm/kg (278-305)
[2021-12-13 17:16] LABS: Osmolality Urine 394 mOsm/kg (50-1200)
== END 2021-12-12 12:00 | disposition home or self-care (01) | DRG 690 ==
LOC: ER 22:40 → MEDSURG 23:20
PROVIDERS: Emergency Medicine; Internal Medicine; Admitting Provider Internal Medicine; Emergency Provider Physician Assistant; Visit Provider Internal Medicine
DX: N39.0 Urinary tract infection, site not specified (principal); Z16.24 Resistance to multiple antibiotics; E87.1 Hypo-osmolality and hyponatremia; B96.20 Unspecified Escherichia coli [E. coli] as the cause of diseases classified elsewhere; E11.65 Type 2 diabetes mellitus with hyperglycemia; E11.43 Type 2 diabetes mellitus with diabetic autonomic (poly)neuropathy; K31.84 Gastroparesis; E78.5 Hyperlipidemia, unspecified; I10 Essential (primary) hypertension; R97.20 Elevated prostate specific antigen [PSA]; E86.0 Dehydration; N40.0 Benign prostatic hyperplasia without lower urinary tract symptoms; Z66 Do not resuscitate; N12 Tubulo-interstitial nephritis, not specified as acute or chronic
CPT/HCPCS: 36415; 36416; 36569; 36592; 71045; 74176; 80048; 80053; 81001; 82009; 82607; 82962; 83036; 83605; 83930; 83935; 84145; 84443; 84550; 85025; 87040; 87077; 87086; 87186; 93005; 96365; 96367; 96372; 99285; C1751; G0103; J0743; J1335; J1644; J1815; J2543; J7030

== ENCOUNTER 2021-12-27 10:34 | Outpatient (RCR) | payer OTHER, MEDICARE, SELFPAY ==
[2021-12-13] MEDS: ertapenem 1,000 MG in sodium chloride 0.9% (plus) 100 ML 200 MG IV (11:20)
[2021-12-13 11:46] VITALS: BP 150/74; PULSE 65; RESP 18; TEMP 36.7; O2SAT 99
[2021-12-14] MEDS: ertapenem 1,000 MG in sodium chloride 0.9% (plus) 100 ML 200 MG IV (11:25)
[2021-12-14 11:30] VITALS: BP 95/64; PULSE 61; RESP 18; TEMP 36.3; O2SAT 96
[2021-12-15] MEDS: ertapenem 1,000 MG in sodium chloride 0.9% (plus) 100 ML 200 MG IV (11:22)
[2021-12-15 11:24] VITALS: BP 129/62; PULSE 61; RESP 18; TEMP 36.7; O2SAT 99
[2021-12-16] MEDS: ertapenem 1,000 MG in sodium chloride 0.9% (plus) 100 ML 200 MG IV (11:39)
[2021-12-16 11:41] VITALS: BP 136/65; PULSE 63; RESP 18; TEMP 36.7; O2SAT 95
[2021-12-17] MEDS: ertapenem 1,000 MG in sodium chloride 0.9% (plus) 100 ML 200 MG IV (11:00)
[2021-12-17 11:26] VITALS: BP 123/66; PULSE 65; RESP 18; TEMP 36.9; O2SAT 95
[2021-12-18 09:23] VITALS: BP 145/64; PULSE 68; RESP 18; TEMP 36.2; O2SAT 100
[2021-12-18] MEDS: ertapenem 1,000 MG in sodium chloride 0.9% (plus) 100 ML 200 MG IV (09:33)
[2021-12-19] MEDS: ertapenem 1,000 MG in sodium chloride 0.9% (plus) 100 ML 200 MG IV (09:54)
[2021-12-19 10:00] VITALS: BP 134/67; PULSE 62; RESP 18; TEMP 36.3; O2SAT 97
[2021-12-19 10:30] VITALS: BP 131/64; PULSE 67; RESP 18; TEMP 36.3; O2SAT 98
[2021-12-20] MEDS: ertapenem 1,000 MG in sodium chloride 0.9% (plus) 100 ML 200 MG IV (10:47)
[2021-12-20 10:50] VITALS: BP 148/74; PULSE 63; RESP 18; TEMP 36.7; O2SAT 99
[2021-12-21] MEDS: ertapenem 1,000 MG in sodium chloride 0.9% (plus) 100 ML 200 MG IV (11:20)
[2021-12-21 11:51] VITALS: BP 130/77; PULSE 64; RESP 18; TEMP 36.2; O2SAT 98
[2021-12-22] MEDS: ertapenem 1,000 MG in sodium chloride 0.9% (plus) 100 ML 200 MG IV (11:37)
[2021-12-22 11:41] VITALS: BP 133/72; PULSE 87; RESP 18; TEMP 37.1; O2SAT 98
[2021-12-23] MEDS: ertapenem 1,000 MG in sodium chloride 0.9% (plus) 100 ML 200 MG IV (11:08)
[2021-12-23 11:18] VITALS: BP 144/60; PULSE 61; RESP 18; TEMP 36.4; O2SAT 98
[2021-12-24] MEDS: ertapenem 1,000 MG in sodium chloride 0.9% (plus) 100 ML 200 MG IV (10:49)
[2021-12-24 10:50] VITALS: BP 147/65; PULSE 64; RESP 18; TEMP 36.5; O2SAT 99
[2021-12-24 12:02] LABS: Urine Appearance Hazy (CLEAR); Urine Color Yellow (Yellow); pH Urine 6 (5-7)
[2021-12-24 12:04] LABS: Add Urine Microscopic? YES; Bilirubin Urine Neg (Negative); Blood Urine 2+ (Negative); Glucose Urine UA 4+ (Normal); Ketones Urine Negative (Negative); Leukocyte Esterase Urine 2+ (Negative); Nitrate Urine Negative (Negative); Protein Urine Neg (Negative); Urobilinogen Urine Norm (Negative)
[2021-12-24 12:23] LABS: Add Urine Culture? Yes; Bacteria Urine TRACE /hpf; RBC Urine 0-4 /hpf (0-2); Squamous Epithelial Cell Urine 0-4 /hpf (0-5); WBC Urine TOO NUMEROUS TO CNT /hpf (0-5)
--- NOTE | 2021-12-24 13:13 | PC.NURSE ---
UA results given to Dr. Hebert. Pt to continue antibiotic Ertapenem 1 gm IV via PICC for one more week. UA to be collected prior to last dose. CBC and CMP to be drawn on Monday12/26/21.
[2021-12-25] MEDS: ertapenem 1,000 MG in sodium chloride 0.9% (plus) 100 ML 200 MG IV (08:40)
[2021-12-25 08:45] VITALS: BP 133/63; PULSE 67; RESP 18; TEMP 36.4; O2SAT 100
[2021-12-26] MEDS: ertapenem 1,000 MG in sodium chloride 0.9% (plus) 100 ML 200 MG IV (08:15)
[2021-12-26 08:21] VITALS: BP 133/62; PULSE 65; RESP 18; TEMP 36.6; O2SAT 98
[2021-12-27 10:30] VITALS: BP 137/73; PULSE 81; RESP 18; TEMP 36.4; O2SAT 98
--- NOTE | 2021-12-27 10:40 | PC.NURSE ---
PICC line to right upper arm removed as ordered. Cath intact. Pressure held for approx 5 min. No bleeding or hematoma noted. Pt educated to look for signs and symptoms of infection and to return to ER for SOB or chest pain.
[2021-12-27 10:48] LABS: Basophils # 0.1 10^3/uL (0.0-0.1); Basophils % 0.9 %; Eosinophils # 0.2 10^3/uL (0.0-0.8); Eosinophils % 2.8 %; Hematocrit 34.2 % (42.0-52.0); Hemoglobin 11.5 g/dL (11.7-16.6); Lymphocytes # 1.3 10^3/uL (0.8-4.8); Lymphocytes % 23.6 %; Mean Corpuscular HGB Conc 33.6 g/dL (30.0-36.0); Mean Corpuscular Hemoglobin 29.9 pg (28.0-34.0); Mean Corpuscular Volume 89.1 fl (80-94); Monocytes # 0.7 10^3/uL (0.2-0.9); Monocytes % 12.6 %; Neutrophils # 3.33 10^3/uL (1.8-7.7); Nucleated Red Blood Cells % 0 %; Platelet Count 196 10^3/cmm (130-400); Red Blood Count 3.84 10^6/uL (4.1-5.3); Red Cell Distribution Width 14.9 % (12.1-15.1); White Blood Count 5.6 10^3/uL (4.0-10.0)
[2021-12-27 11:12] LABS: Alanine Aminotransferase 18 U/L (0-41); Albumin Level 3.6 g/dL (3.5-5.2); Alkaline Phosphatase 68 IU/L (40-130); Blood Urea Nitrogen 18 mg/dL (8-23); Calcium 8.2 mg/dL (8.5-10.5); Carbon Dioxide 22 mmol/L (22-29); Chloride 99 mmol/L (98-107); Globulin 3.1 g/dL (1.3-4.6); Glucose 319 mg/dL (65-115); Osmolality Calculated 288 mOsm/kg (285-295); Sodium 132 mmol/L (136-145); Total Bilirubin 0.3 mg/dL (0.15-1.2); Total Protein 6.7 g/dL (6.6-8.7)
[2021-12-27 11:13] LABS: Anion Gap 15.7 (5-19); Aspartate Amino Transferase 23 U/L (0-40); Potassium 4.7 mmol/L (3.5-5.1)
--- NOTE | 2021-12-27 16:37 | PC.SOCIAL ---
Pita RN sent referral to Urology and per her report they will call patient with appt. Set reminder on calendar to follow up later this week to ensure appt is scheduled. Sending info to December at [place] to get auth for Urology appt. Also discussed this with patient in person while he was at GI lab. Will ask December to also discuss with provider potential colonoscopy screening based on age and fact patient reports does not seem to be having adequate bowel movements. Clarified with patient the he did not have colonscopy done in hospital. He verbalized that he thought Dr Hebert did this but he asked him over weekend and was told a rectal exam only was completed. Will update Amanda at [place] of this.
== END 2022-01-01 23:59 | disposition home or self-care (01) ==
LOC: GILAB 10:34
PROVIDERS: Visit Provider Internal Medicine
DX: N39.0 Urinary tract infection, site not specified (principal)
CPT/HCPCS: 36592; 80053; 81001; 85025; 87086; 96365; J1335

== ENCOUNTER → 2022-01-21 08:31 | Outpatient (BNVA) | payer OTHER, SELFPAY | PROVIDERS: Visit Provider Nurse Practitioner Family | DX: N39.0 Urinary tract infection, site not specified (principal); B96.29 Other Escherichia coli [E. coli] as the cause of diseases classified elsewhere; Z16.12 Extended spectrum beta lactamase (ESBL) resistance | CPT/HCPCS: 51741; 51798; 81003; 87077; 87086; 87186; 99203 ==

== ENCOUNTER → 2022-01-28 07:22 | Outpatient (BNVA) | payer OTHER, SELFPAY | PROVIDERS: Visit Provider Nurse Practitioner Family | DX: N39.0 Urinary tract infection, site not specified (principal); B96.29 Other Escherichia coli [E. coli] as the cause of diseases classified elsewhere; Z16.12 Extended spectrum beta lactamase (ESBL) resistance | CPT/HCPCS: 81003; 85025; 87086 ==

== ENCOUNTER → 2022-02-10 08:08 | Outpatient (BNVA) | payer OTHER, SELFPAY | PROVIDERS: Visit Provider Urology | DX: N30.80 Other cystitis without hematuria (principal); N39.0 Urinary tract infection, site not specified; R33.9 Retention of urine, unspecified | CPT/HCPCS: 51741; 51798; 52000; 81003; 87086; 99214 ==

== ENCOUNTER → 2022-03-09 08:08 | Outpatient (BNVA) | payer OTHER, SELFPAY | PROVIDERS: Visit Provider Nurse Practitioner Family | DX: N30.80 Other cystitis without hematuria (principal) | CPT/HCPCS: 81003; 87086; 99213 ==

== ENCOUNTER → 2022-03-21 10:07 | Outpatient (BNVA) | payer OTHER, SELFPAY | PROVIDERS: Visit Provider Nurse Practitioner Family | DX: N39.0 Urinary tract infection, site not specified (principal) | CPT/HCPCS: 81003; 87077; 87086; 87186 ==

== ENCOUNTER 2022-03-22 15:36 | Emergency (ER) | payer OTHER, SELFPAY ==
--- NOTE | 2022-03-22 15:42 | XRR_ITS ---
PROCEDURE INFORMATION: Exam: XR Chest Exam date and time: 03/22/2022 6:50 PM Age: 71 years old Clinical indication: Other: Feet swelling redness; Additional info: Swelling/fluid retention TECHNIQUE: Imaging protocol: Radiologic exam of the chest. Views: 1 view. COMPARISON: CR XR chest 1V portable [id number] 12/10/2021 1:08 PM FINDINGS: Lungs: Unremarkable. No consolidation. Pleural spaces: Unremarkable. No pleural effusion. No pneumothorax. Heart/Mediastinum: Unremarkable. No cardiomegaly. Bones/joints: Unremarkable. XR/XR chest 1V portable [id number] IMPRESSION: No acute findings.
[2022-03-22 16:56] VITALS: BP 192/81; PULSE 79; RESP 18; TEMP 36.6; O2SAT 98; BMI 26.7
[2022-03-22 17:32] LABS: Basophils # 0.1 10^3/uL (0.0-0.1); Basophils % 1.6 %; Eosinophils # 0.4 10^3/uL (0.0-0.8); Eosinophils % 7.1 %; Hematocrit 37.6 % (42.0-52.0); Hemoglobin 12.8 g/dL (11.7-16.6); Lymphocytes # 1.8 10^3/uL (0.8-4.8); Lymphocytes % 30.7 %; Mean Corpuscular Hemoglobin 30.3 pg (28.0-34.0); Mean Corpuscular Volume 88.9 fl (80-94); Mean Platelet Volume 9.7 fL (7.4-10.4); Monocytes # 1.1 10^3/uL (0.2-0.9); Monocytes % 18.5 %; Neutrophils # 2.41 10^3/uL (1.8-7.7); Neutrophils % 41.8 %; Nucleated Red Blood Cells % 0 %; Platelet Count 153 10^3/cmm (130-400); Red Blood Count 4.23 10^6/uL (4.1-5.3); Red Cell Distribution Width 16.5 % (12.1-15.1); White Blood Count 5.8 10^3/uL (4.0-10.0)
[2022-03-22 18:06] LABS: Alanine Aminotransferase 18 U/L (0-41); Albumin Level 4.5 g/dL (3.5-5.2); Alkaline Phosphatase 69 IU/L (40-130); Anion Gap 14.3 (5-19); Aspartate Amino Transferase 19 U/L (0-40); Blood Urea Nitrogen 18 mg/dL (8-23); Calcium 9.5 mg/dL (8.5-10.5); Carbon Dioxide 29 mmol/L (22-29); Chloride 100 mmol/L (98-107); Globulin 2.8 g/dL (1.3-4.6); Glucose 132 mg/dL (65-115); NT Pro B Type Natriuretic Pept 258 pg/mL (0-125); Osmolality Calculated 292 mOsm/kg (285-295); Potassium 4.3 mmol/L (3.5-5.1); Sodium 139 mmol/L (136-145); Total Bilirubin 0.2 mg/dL (0.15-1.2); Total Protein 7.3 g/dL (6.6-8.7)
[2022-03-22 19:56] LABS: Add Urine Culture? No; Add Urine Microscopic? YES; Bilirubin Urine Neg (Negative); Blood Urine Neg (Negative); Glucose Urine UA Norm (Normal); Ketones Urine Negative (Negative); Leukocyte Esterase Urine 1+ (Negative); Nitrate Urine Negative (Negative); Protein Urine Neg (Negative); RBC Urine 0-4 /hpf (0-2); Specific Gravity, Urine 1.005 (1.005-1.030); Squamous Epithelial Cell Urine 0-4 /hpf (0-5); Urine Appearance Clear (CLEAR); Urine Color Colorless (Yellow); Urobilinogen Urine Norm (Negative); pH Urine 7 (5-7)
--- NOTE | 2022-03-22 20:51 | ED_ITS ---
HPI - General Adult General: Chief complaint: General Medical Stated complaint: feet and legs swelling Time Seen by Provider: 03/22/22 20:50 History of Present Illness: Mr. Mcguire is a 71-year-old gentleman with complex past medical history occluding hospitalization for urinary tract infection with ESBL E. 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 He reports first noticing swelling approximately 3 weeks ago. He has chronically been on Augmentin and is concerned that this is a side effect. Additionally he noticed rash which is improved with topical treatment as well as muscle aches. Overall course of symptoms has persisted. Intensity is moderate. Denies similar episodes in the past. Denies cardiac history. No other specific changes in health, exacerbating, or alleviating factors identified. Onset (ago): week(s) Location: lower extremity Severity: moderate Quality: aching Associated symptoms: Reports rash and other Review of Systems General: Reports: 10 or more systems reviewed and unremarkable except in HPI and below Skin/Breast: Reports: rash PFSH ED PFSH: Medical History Abnormal PSA DM type 2 (diabetes mellitus, type 2) Hyperlipidemia Hypertension Recurrent UTI Syncope Family History Mother , at age 69 Cancer Lung Father No problems noted. Social History Smoking and tobacco status: never smoked Alcohol intake: never Lives independently: Yes Household members: spouse Marital status: service: Yes Current occupational status: retired History of recent travel: No Physical Exam 2 Const: COMMON NORMALS: alert GENERAL APPEARANCE: cooperative and well developed HENMT: COMMON NORMALS: normocephalic and atraumatic HEAD & SCALP: normocephalic and atraumatic Eye: COMMON NORMALS: conjunctivae normal CONJUNCTIVA: Yes conjunctivae normal SCLERA: sclerae normal Neck/C-Spine: COMMON NORMALS: supple GENERAL: Yes trachea midline Resp: COMMON NORMALS: normal respiratory effort and clear to auscultation bilaterally EFFORT & INSPECTION: Yes able to speak in complete sentences AUSCULTATION: clear to auscultation bilaterally Cardio: COMMON NORMALS: regular rate and regular rhythm RATE: regular rate RHYTHM: regular rhythm OTHER: Strong DP/PT bilaterally lower extremity GI: COMMON NORMALS: Soft to palpation PALPATION: Yes Soft to palpation and No Tenderness to palpation present (GI) PERCUSSION: normal to percussion Extremity: GENERAL: Yes normal exam except as noted and Yes edema (1+ pitting bilateral lower extremities.) Neuro: COMMON NORMALS: moves all extremities SENSORIUM/ORIENTATION: Yes alert and No Orientation impaired Psych: COMMON NORMALS: mental status grossly normal and Normal thought process present THOUGHT PROCESS: Normal thought process present Skin: NARRATIVE SKIN EXAM: Scattered areas most prominent on thighs and right upper extremity of improving erythematous maculopapular rash. No vesicles appreciated. Course ED course: - Patient was seen and evaluated by me at bedside - Patient placed on cardiac monitors, IV access obtained - Initial evaluation notable for exam above, 1+ symmetric edema - Labs and xrays personally interpreted by me. EKG showing sinus rhythm with no STEMI - Labs notable for no leukocytosis, normal hemoglobin. Metabolic panel without significant derangement. BNP minimally elevated. Urinalysis with 5-10 WBCs, nitrate negative. - Imaging notable for no significant pulmonary edema, no lobar consolidation or pneumothorax. DVT study is negative. - Upon serial reexamination after treatment the patient was similar - Based on patient history, evaluation, and testing as interpreted the most likely cause of the patient's condition is lower extremity edema of uncertain etiology. Patient is not requiring oxygen and does not have profound evidence of heart failure on exam. Plan to trial short course of Lasix with close PCP follow-up - The results of ED evaluation were discussed with the patient including prescriptions and/or symptomatic cares (if applicable) including appropriate and responsible use, followup plan, and return precautions. The patient verbalized understanding and felt safe for discharge. - Patient discharged in satisfactory condition. Note: Click bubbles or prepopulated flores in note writing are used for assistance with data collection and billing and are inherently more limited than narrative and other text portions of this note. Please use narrative for additional clinical history and defer to narrative/free test for any case of contradictory information. If information appears in only free text or click bubble it should be considered present or absent as reported. Please contact note news writer for clarifications of clinical information or contradictory information. MDM is a brief summary, contradictory or erroneous seeming information should be clarified and full note should be reviewed. Vital Signs: Vital signs: Vital Signs Temperature 97.9 F 03/22/22 16:56 Pulse Rate 64 03/23/22 00:03 Respiratory Rate 16 03/23/22 00:03 Blood Pressure 167/89 03/23/22 00:03 Pulse Oximetry 98 03/23/22 00:03 Oxygen Delivery Me thod 03/22/22 16:56 MDM - General Adult Medical Decision Making 71-year-old lady presenting with lower extremity edema. 1+ bilaterally which is symmetric. No long-term current without heart failure symptoms. ED study ne gative. Affect appropriate management with close PCP follow-up, plan to trial short course of Lasix. Medical Records I reviewed the patient's medical records. Lab Data I reviewed the patient's lab results. : 03/22/22 17:19 03/22/22 17:19 Radiology Impressions Chest X-Ray 03/22/22 15:42 IMPRESSION: No acute findings. Venous Duplex 03/22/22 21:12 IMPRESSION: No evidence of deep vein thrombosis. Laboratory Results WBC 5.8 10^3/uL (4.0-10.0) 03/22/22 17:19 RBC 4.23 10^6/uL (4.1-5.3) 03/22/22 17:19 Hgb 12.8 g/dL (11.7-16.6) 03/22/22 17:19 Hct 37.6 % (42.0-52.0) L 03/22/22 17:19 MCV 88.9 fl (80-94) 03/22/22 17:19 MCH 30.3 pg (28.0-34.0) 03/22/22 17:19 MCHC 34.0 g/dL (30.0-36.0) 03/22/22 17:19 RDW 16.5 % (12.1-15.1) H 03/22/22 17:19 Plt Count 153 10^3/cmm (130-400) 03/22/22 17:19 MPV 9.7 fL (7.4-10.4) 03/22/22 17:19 Neut % (Auto) 41.8 % 03/22/22 17:19 Lymph % (Auto) 30.7 % 03/22/22 17:19 [place] % (Auto) 18.5 % 03/22/22 17:19 Eos % (Auto) 7.1 % 03/22/22 17:19 Baso % (Auto) 1.6 % 03/22/22 17:19 Neut # (Auto) 2.41 10^3/uL (1.8-7.7) 03/22/22 17:19 Lymph # (Auto) 1.8 10^3/uL (0.8-4.8) 03/22/22 17:19 [place] # (Auto) 1.1 10^3/uL (0.2-0.9) H 03/22/22 17:19 Eos # (Auto) 0.4 10^3/uL (0.0-0.8) 03/22/22 17:19 Baso # (Auto) 0.1 10^3/uL (0.0-0.1) 03/22/22 17:19 Nucleated RBC % (auto) 0 % 03/22/22 17:19 Nucleated RBCs # 0.0 /100WBC 03/22/22 17:19 Sodium 139 mmol/L (136-145) 03/22/22 17:19 Potassium 4.3 mmol/L (3.5-5.1) 03/22/22 17:19 Chloride 100 mmol/L (98-107) 03/22/22 17:19 Carbon Dioxide 29 mmol/L (22-29) 03/22/22 17:19 Anion Gap 14.3 (5-19) 03/22/22 17:19 BUN 18 mg/dL (8-23) 03/22/22 17:19 Creatinine 1.0 mg/dL (0.7-1.2) 03/22/22 17:19 GFR Calculation Not Reportable 03/22/22 17:19 Glucose 132 mg/dL (65-115) H 03/22/22 17:19 Calculated Osmolality 292 mOsm/kg (285-295) 03/22/22 17:19 Calcium 9.5 mg/dL (8.5-10.5) 03/22/22 17:19 Total Bilirubin 0.2 mg/dL (0.15-1.2) 03/22/22 17:19 AST 19 U/L (0-40) 03/22/22 17:19 ALT 18 U/L (0-41) 03/22/22 17:19 Alkaline Phosphatase 69 IU/L (40-130) 03/22/22 17:19 Troponin T Baseline 14 ng/L (0-15) 03/22/22 21:55 NT-Pro-B Natriuret Pep 258 pg/mL (0-125) H 03/22/22 17:19 Total Protein 7.3 g/dL (6.6-8.7) 03/22/22 17:19 Albumin 4.5 g/dL (3.5-5.2) 03/22/22 17:19 Globulin 2.8 g/dL (1.3-4.6) 03/22/22 17:19 Urine Color Colorless (Yellow) 03/22/22 17:19 Urine Appearance Clear (CLEAR) 03/22/22 17:19 Urine pH 7 (5-7) 03/22/22 17:19 Ur Specific [place] 1.005 (1.005-1.030) 03/22/22 17:19 Urine Protein Neg (Negative) 03/22/22 17:19 Urine Glucose (UA) Norm (Normal) 03/22/22 17:19 Urine Ketones Negative (Negative) 03/22/22 17:19 Urine Blood Neg (Negative) 03/22/22 17:19 Urine Nitrate Negative (Negative) 03/22/22 17:19 Urine Bilirubin Neg (Negative) 03/22/22 17:19 Urine Urobilinogen Norm mg/dL (Negative) 03/22/22 17:19 Ur Leukocyte Esterase 1+ (Negative) H 03/22/22 17:19 Urine RBC 0-4 /hpf (0-2) H 03/22/22 17:19 Urine WBC 5-10 /hpf (0-5) H 03/22/22 17:19 Ur Squamous Epith Cells 0-4 /hpf (0-5) H 03/22/22 17:19 Amorphous Sediment Not Reportable 03/22/22 17:19 Urine Bacteria None /hpf (NONE) 03/22/22 17:19 Discharge Plan Discharge Patient Disposition: Home Clinical Impression: Leg swelling, Rash Condition: Stable Prescriptions: New Lasix 40 mg tablet 40 mg PO DAILY Qty: 5 0RF potassium chloride 20 mEq tablet extended release 20 meq PO DAILY Qty: 5 0RF No Action nitrofurantoin monohyd/m-cryst [Macrobid] 100 mg capsule 100 mg PO BID Qty: 60 2RF Rx Instructions: must administer with a meal/food pravastatin 80 mg Tablet 80 mg PO DAILY@04 polyethylene glycol 3350 [Miralax] 17 gram/dose Powder 17 g PO DAILY PRN (Reason: Constipation) aspirin 325 mg tablet 325 mg PO DAILY@04 lidocaine 5 % Adhesive Patch,Medicated 1 patch TOPICAL DAILY Rx Instructions: leave on most painful area for up to 12 hrs metformin 500 mg Tablet Extended Release 24 Hr 500 mg PO DAILY acarbose 25 mg Tablet 25 mg PO TID Megestrol Acetate 10 ML 10 ml PO DAILY sennosides-docusate sodium [Stool Softener-Laxative] 8.6-50 mg Tablet 1 tab PO DAILY Qty: 20 0RF amlodipine 10 mg Tablet 10 mg PO DAILY Qty: 30 0RF lisinopril 10 mg tablet 10 mg PO DAILY Qty: 60 2RF Discharge Orders: Discharge ED (Routine); Ordered 03/22/22 Ordered By: Mykel Garcia Discharge Diet: Low Salt Discharge Activity: Resume usual activity Patient Instructions: Furosemide (By mouth) (Lasix), Leg Edema (ED) Activity Restrictions/Additional Instructions: Thank you for visiting the emergency department. You were seen and evaluated for leg swelling. The exact cause of your symptoms is unclear however you will be trialed on Lasix for excess fluid. This requires repeat lab studies in [address] Travis's office in the morning regarding medication changes as discussed. Please return to the emergency department for worsening symptoms or anything else that you are concerned about a feel needs emergency department evaluation. Coding Level of Care Code ED Anesthesiologist And Critical Care for Jayjay Fwshakeel Exam Comprehensive
[2022-03-22 21:01] VITALS: BP 154/76; PULSE 69; O2SAT 97
--- NOTE | 2022-03-22 21:02 | ECG_ITS ---
[facility] Test Date: 2022-03-22 Pat Name: Omar Mcguire Department: Room: Gender: Male Recovery Auditor: : 1950 Requested By: Mykel Garcia Order Number: [id number] Ajit MD: Freeman Alvarenga M.D. Measurements Intervals [place] Rate: 58 P: 45 AK: 194 QRS: -7 QRSD: 87 T: 22 QT: 443 QTc: 437 Interpretive Statements SINUS BRADYCARDIA Compared to ECG 12/08/2021 20:52:42 Sinus rhythm no longer present Sinus arrhythmia no longer present Electronically Signed On 03-23-2022 16:31:52 CDT by Freeman Alvarenga M.D. [email or web address]/[id number]
--- NOTE | 2022-03-22 21:12 | USR_ITS ---
PROCEDURE INFORMATION: Exam: US Duplex Lower Extremity Veins, Bilateral Exam date and time: 03/22/2022 9:26 PM Age: 71 years old Clinical indication: Edema, localized; Lower extremity, bilateral; Patient HX: Ble edema x 4 days. Patient thinks it is due to a allergic reaction to medication. No HX dvt per patient; Additional info: Lower extremity swelling TECHNIQUE: Imaging protocol: Real-time Duplex ultrasound of the bilateral extremities with 2-D duenas scale, color Doppler flow and spectral waveform analysis with image documentation. Complete exam focused on the bilateral lower extremity veins. COMPARISON: CT abdomen pelvis wo con [id number] 12/09/2021 11:44 AM FINDINGS: Right deep veins: Unremarkable. The common femoral, femoral, proximal profunda femoral and popliteal veins are patent without thrombus. Normal Doppler waveforms. Normal compressibility and/or augmentation response. Right superficial veins: Saphenofemoral junction is patent without thrombus. Left deep veins: The common femoral, femoral, proximal profunda femoral and popliteal veins are patent without thrombus. Normal Doppler waveforms. Normal compressibility and/or augmentation response. Left superficial veins: Saphenofemoral junction is patent without thrombus. Soft tissues: Unremarkable. US/[place] [id number] IMPRESSION: No evidence of deep vein thrombosis.
[2022-03-22 21:35] LABS: NT Pro B Type Natriuretic Pept 255 pg/mL (0-125)
[2022-03-22 23:11] LABS: Troponin(5th) Baseline 14 ng/L (0-15)
[2022-03-23 00:03] VITALS: BP 167/89; PULSE 64; RESP 16; O2SAT 98
--- NOTE | 2022-03-24 09:03 | DCPLANNER ---
manager talent acquisition was left some outpatient orders for blood and urine. manager talent acquisition gave the written order to registration at the it desktop support specialist in the ER to be scanned into patients chart.
== END 2022-03-23 00:05 | disposition home or self-care (01) ==
PROVIDERS: Family Medicine; Physician Assistant; Emergency Provider Emergency Medicine
DX: M79.89 Other specified soft tissue disorders (principal); R21 Rash and other nonspecific skin eruption; Z79.82 Long term (current) use of aspirin; Z79.84 Long term (current) use of oral hypoglycemic drugs; E11.9 Type 2 diabetes mellitus without complications; E78.5 Hyperlipidemia, unspecified; I10 Essential (primary) hypertension
CPT/HCPCS: 71045; 80053; 81001; 83880; 84484; 85025; 87086; 93005; 93970; 99285

== ENCOUNTER 2022-03-28 08:04 | Outpatient (CLI) | payer OTHER, SELFPAY ==
[2022-03-28 09:16] LABS: Anion Gap 13.4 (5-19); Blood Urea Nitrogen 21 mg/dL (8-23); Calcium 9.3 mg/dL (8.5-10.5); Carbon Dioxide 29 mmol/L (22-29); Chloride 96 mmol/L (98-107); Glucose 305 mg/dL (65-115); Osmolality Calculated 292 mOsm/kg (285-295); Potassium 4.4 mmol/L (3.5-5.1); Sodium 134 mmol/L (136-145)
== END 2022-03-28 08:05 | disposition home or self-care (01) ==
PROVIDERS: Referring Provider Nurse Practitioner Family; Visit Provider Emergency Medicine
DX: N39.0 Urinary tract infection, site not specified (principal)
CPT/HCPCS: 80048; 87077; 87086; 87186

== ENCOUNTER → 2022-04-21 08:43 | Outpatient (BNVA) | payer OTHER, SELFPAY | PROVIDERS: Visit Provider Urology | DX: N30.80 Other cystitis without hematuria (principal) | CPT/HCPCS: 81003; 99214 ==